=== PATIENT | female | born 1965 | race Caucasian/White ===

== ENCOUNTER 2020-04-16 09:25 | Outpatient (REF) | payer OTHER, SELFPAY ==
--- NOTE | 2020-04-16 09:32 | XR_ITS ---
EXAMINATION: XR FOOT, RIGHT XR CALCANEUS, RIGHT CLINICAL INFORMATION: Pain right foot and heel. COMPARISON: None TECHNIQUE: Right foot is imaged in 3 views. The right calcaneus is imaged in 2 views. There are total of 5 views. FINDINGS: There is no acute or healing fracture, dislocation, destructive process. Bony mineralization is normal. There is hallux valgus and first MTP of approximately 22 degrees along with bunion. There is some punctate benign periarticular soft tissue calcification adjacent to base fifth toe middle phalanx. The midfoot and forefoot shows no focal joint narrowing or erosive change. Some mild dorsal spurring is noted at the talonavicular region. The subtalar joint is normal. There are bulky plantar and posterior calcaneal spurs. The retrocalcaneal recess is preserved. XR/XR foot RT min 3V IMPRESSION: 1. Bulky plantar and posterior calcaneal spurs. 2. Spurring talonavicular region. 3. Hallux valgus first MTP with bunion.
--- NOTE | 2020-04-16 09:32 | XR_ITS ---
EXAMINATION: XR FOOT, RIGHT XR CALCANEUS, RIGHT CLINICAL INFORMATION: Pain right foot and heel. COMPARISON: None TECHNIQUE: Right foot is imaged in 3 views. The right calcaneus is imaged in 2 views. There are total of 5 views. FINDINGS: There is no acute or healing fracture, dislocation, destructive process. Bony mineralization is normal. There is hallux valgus and first MTP of approximately 22 degrees along with bunion. There is some punctate benign periarticular soft tissue calcification adjacent to base fifth toe middle phalanx. The midfoot and forefoot shows no focal joint narrowing or erosive change. Some mild dorsal spurring is noted at the talonavicular region. The subtalar joint is normal. There are bulky plantar and posterior calcaneal spurs. The retrocalcaneal recess is preserved. XR/XR calcaneus RT min 2V IMPRESSION: 1. Bulky plantar and posterior calcaneal spurs. 2. Spurring talonavicular region. 3. Hallux valgus first MTP with bunion.
== END 2020-04-16 09:26 | disposition home or self-care (01) ==
LOC: HO.HMGCX 09:25
PROVIDERS: PCP Nurse Practitioner Family; Visit Provider Nurse Practitioner Family
DX: M77.31 Calcaneal spur, right foot (principal); M77.32 Calcaneal spur, left foot; M79.671 Pain in right foot
CPT/HCPCS: 73630; 73650

== ENCOUNTER 2020-04-29 15:30 | Outpatient (REF) | payer OTHER, SELFPAY | END 2020-04-29 15:31 | disposition home or self-care (01) | LOC: HO.LNP 15:30 | PROVIDERS: Visit Provider Nurse Practitioner Family | DX: Z20.828 Contact with and (suspected) exposure to other viral communicable diseases (principal); R53.1 Weakness | CPT/HCPCS: U0003 ==

== ENCOUNTER 2020-06-09 12:22 | Outpatient (REF) | payer OTHER, SELFPAY | END 2020-06-09 12:23 | disposition home or self-care (01) | LOC: HO.LAB 12:22 | PROVIDERS: Visit Provider Internal Medicine | DX: Z20.828 Contact with and (suspected) exposure to other viral communicable diseases (principal) | CPT/HCPCS: C9803; U0003 ==

== ENCOUNTER 2021-03-31 13:08 | Outpatient (REF) | payer OTHER, SELFPAY ==
--- NOTE | ~2021-03-31 | MM_ITS ---
EXAMINATION: MM SCREENING DIGITAL BREAST TOMOSYNTHESIS, BILATERAL CLINICAL INFORMATION: Screening. Asymptomatic. The lifetime risk of breast cancer based on the Tyrer-Cuzick Model is 15%. COMPARISON: Mammography: 09/26/2018, 04/20/2017, 12/01/2014 TECHNIQUE: Digital breast tomosynthesis is performed in both the craniocaudal and mediolateral oblique views along with computer-aided detection (CAD). Synthesized 2D images are generated from the tomosynthesis. FINDINGS: There are scattered areas of fibroglandular density (ACR BI-RADS breast composition Category b). There are no significant masses, abnormal calcifications, or other abnormalities. Breast tissue composition is heterogeneously dense in the upper outer quadrant is Michelle prior exam. There is no developing density. Surgical clips are again noted upper outer quadrant left breast. No significant changes. MM/MM tomosynthesis screening BI IMPRESSION: No mammographic evidence of malignancy. ASSESSMENT: BI-RADS 1: Negative RECOMMENDATION: Routine annual mammography screening. This patient's information was entered into a reminder system with a target due date for their next mammogram.
== END 2021-03-31 13:09 | disposition home or self-care (01) ==
LOC: HO.MAMMO 13:08
PROVIDERS: Visit Provider Nurse Practitioner Family
DX: Z12.31 Encounter for screening mammogram for malignant neoplasm of breast (principal)
CPT/HCPCS: 77063; 77067

== ENCOUNTER 2021-07-03 08:58 | Outpatient (REF) | payer OTHER, SELFPAY ==
[2021-07-03 09:42] LABS: COVID-19 Test Negative (Negative)
== END 2021-07-03 08:59 | disposition home or self-care (01) ==
LOC: HO.LAB 08:58
PROVIDERS: PCP Nurse Practitioner Family; Visit Provider Internal Medicine
DX: Z20.822 Contact with and (suspected) exposure to COVID-19 (principal)
CPT/HCPCS: 87635

== ENCOUNTER 2021-09-10 08:33 | Outpatient (REF) | payer OTHER, SELFPAY ==
[2021-09-10 15:48] LABS: CT PCR NOT DETECTED (Not Detect.); NG PCR NOT DETECTED (Not Detect.)
[2021-09-11 11:10] LABS: BV Int Neg Control Negative (Negative); BV Int Pos Control Positive (Positive)
== END 2021-09-10 08:34 | disposition home or self-care (01) ==
LOC: HO.LAB 08:33
PROVIDERS: PCP Nurse Practitioner Family; Visit Provider Advanced Practice Midwife
DX: N89.8 Other specified noninflammatory disorders of vagina (principal); R10.2 Pelvic and perineal pain; Z20.2 Contact with and (suspected) exposure to infections with a predominantly sexual mode of transmission
CPT/HCPCS: 87480; 87491; 87510; 87591; 87660

== ENCOUNTER 2021-09-14 10:02 | Outpatient (REF) | payer OTHER, SELFPAY ==
[2021-09-18 02:22] LABS: HPV mRNA E6/E7 rflx Detected (Not Detected)
[2021-09-18 02:26] LABS: HPV 16 RNA NOT DETECTED (NOT DETECTED)
== END 2021-09-14 10:03 | disposition home or self-care (01) ==
LOC: HO.LAB 10:02
PROVIDERS: PCP Nurse Practitioner Family; Visit Provider Advanced Practice Midwife
DX: Z01.419 Encounter for gynecological examination (general) (routine) without abnormal findings (principal); N76.0 Acute vaginitis; B96.89 Other specified bacterial agents as the cause of diseases classified elsewhere; Z11.51 Encounter for screening for human papillomavirus (HPV); Z88.6 Allergy status to analgesic agent; Z88.4 Allergy status to anesthetic agent
CPT/HCPCS: 87624; 87625; 88142

== ENCOUNTER 2021-11-19 16:55 | Emergency (ER) | payer OTHER, SELFPAY ==
--- NOTE | 2021-11-19 | ECG_ITS ---
Test Reason : CHEST PRESSURE Blood Pressure : / mmHG Vent. Rate : 110 BPM Atrial Rate : 110 BPM P-R Int : 156 ms QRS Dur : 090 ms QT Int : 342 ms P-R-T Axes : 043 -04 034 degrees QTc Int : 462 ms Sinus tachycardia RSR' or QR pattern in V1 suggests right ventricular conduction delay Inferior infarct , age undetermined Anterior infarct , age undetermined Abnormal ECG When compared with ECG of 12-AUG-2019 09:48, Anterior infarct is now Present Inferior infarct is now Present Referred By: Generic ED Physician Electronically Signed By:BALA SILVA MD
--- NOTE | ~2021-11-19 | XR_ITS ---
EXAMINATION: PORTABLE CHEST 1 VIEW CLINICAL INFORMATION: cough . COMPARISON: No recent pertinent prior studies are available for comparison. TECHNIQUE: Portable frontal view of the chest was obtained. FINDINGS: The lungs are well expanded. No focal infiltrate, effusion, edema, or pneumothorax. Cardiac and mediastinal silhouettes are within normal limits for technique. No acute bony abnormality seen with degenerative changes in the spine and shoulders.. XR/XR chest 1V IMPRESSION: No evidence of acute disease.
[2021-11-19 17:01] VITALS: BP 148/110; PULSE 120; RESP 18; TEMP 36.3; O2SAT 97; BMI 26.5
[2021-11-19 17:10] LABS: MANUAL DIFF FLAG NO
[2021-11-19 17:14] LABS: Basophils Percent Auto 0.2 % (0-2); Eosinophils Absolute Auto 0.1 X10*3/uL (0.0-0.4); Hematocrit 39.4 % (37.0-47.0); Hemoglobin 13.7 g/dl (12.0-16.0); Imm Gran Abs Auto 0.01 X10*3/uL (0.00-0.03); Imm Gran Pct Auto 0.2 % (0.0-0.4); Lymphocytes Absolute Auto 1.7 X10*3/uL (1.2-4.9); Lymphocytes Percent Auto 27.3 % (20-40); Mean Corpuscular HGB Conc 34.8 g/dl (31.0-35.0); Mean Corpuscular Hemoglobin 32.5 pg (27.0-33.0); Mean Corpuscular Volume 93.4 fL (80.0-98.0); Mean Platelet Volume 9.3 fL (9.4-12.3); Monocytes Absolute Auto 0.5 X10*3/uL (0.1-1.2); Monocytes Percent Auto 8.8 % (2-11); Neutrophils Absolute Auto 3.8 x10*3/uL (2.0-8.3); Neutrophils Percent Auto 61.5 % (45-73); Platelet Count 232 X10*3/uL (160-400); Red Blood Count 4.22 X10*6/uL (4.20-5.50); Red Cell Distribution Width 12.5 % (11.0-16.0); White Blood Count 6.2 X10*3/uL (4.8-10.8)
[2021-11-19 17:28] LABS: Alanine Aminotransferase 23 U/L (0-31); Albumin Level 4.5 g/dL (3.5-5.0); Alkaline Phosphatase 66 U/L (39-117); Anion Gap 13 (12-20); Aspartate Amino Transferase 24 U/L (5-31); Bilirubin Total 0.3 mg/dL (0.0-1.0); Blood Urea Nitrogen 15 mg/dL (9-16); Calcium 9.9 mg/dL (8.4-10.2); Carbon Dioxide 26 mmol/L (22-29); Chloride 104 mmol/L (96-108); Creatinine Clr Calc Pharmacy 68.9; Estimated Glomerular Filt Rate > 60; Glucose Random 104 mg/dL (60-115); Potassium 3.7 mmol/L (3.3-5.1); Sodium 139 mmol/L (135-145); Total Protein 7.4 g/dL (6.5-8.0)
--- NOTE | 2021-11-19 17:30 | ED.CHESTPAIN ---
HPI - Chest Pain General Chief Complaint: Chest Pain Stated Complaint: High pulse/Chest pressure Time Seen by Provider: 11/19/21 17:09 Source: patient Mode of arrival: ambulatory Limitations: no limitations History of Present Illness HPI narrative: Patient no significant past medical history been coughing for last 1 week mostly dry patient referred phlegm low-grade fever and chills with elevated heart rate in 130 range associated with right-sided chest pain when coughing. Also patient feels short of breath when coughing patient is not vaccinated against COVID-19 had COVID in 07/10 been testing at home negative for COVID also was tested at work connection last week 11/10 and was negative Related Data Home Medications Medication Instructions Recorded Confirmed fluticasone propionate 50 2 spray INTRANASAL DAILY PRN 04/16/20 12/25/20 mcg/actuation nasal spray,suspension omeprazole 20 mg tablet,delayed 20 mg PO DAILY 04/16/20 12/25/20 release Previous Rx's Medication Instructions Recorded tretinoin 0.01 % topical gel 1 applic TOPICAL BEDTIME 30 Days 04/16/20 #45 g metronidazole 500 mg tablet 500 mg PO Q12H 7 Days #14 tab 09/14/21 metronidazole 0.75 % vaginal gel 1 appful VAGINAL BEDTIME 5 Days 10/08/21 #70 g codeine 10 mg-guaifenesin 100 mg/5 10 ml PO Q6H PRN #237 ml 11/19/21 mL oral liquid Allergies Allergy/AdvReac Type Severity Reaction Status Date / Time lidocaine [LIDOCAINE] Allergy Unknown UNKNOWN Verified 09/14/21 10:17 oxycodone [From PERCOCET] Allergy Unknown VOMITING Verified 09/14/21 10:17 Review of Systems Review of Systems: Yes all other systems are reviewed and are negative [facility] Past Medical History Medical History Anxiety Family hx-breast malignancy High calcium levels History of abnormal cervical Pap smear Pain of right heel Psoriasis Surgical History H/O LEEP History of hemorrhoidectomy History of tubal ligation Hx of cholecystectomy Hx of colonoscopy Status post breast reduction Family History Family History Father No problems noted. 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 Oriented X3. ENT: Pharynx normal. Oral Mucosa moist Neck: Normal inspection. Neck supple. CVS: Normal heart rate and rhythm. Pulses normal. Respiratory: No respiratory distress. Equal air entry bilateral, no wheezing/rales/rhonchi prolonged expiration Abdomen: Soft and nontender. Bowel sounds are present, no mass palpable, no CVA tenderness Skin: Skin warm and dry. Normal skin color. Normal skin turgor. Extremities: No lower extremity edema. No calf tenderness Neuro: Oriented X 3. No motor deficit. MDM - Chest Pain MDM Narrative Medical decision making narrative: Patient with COVID positive likely the cause for cough fever and body symptoms will discharge patient home advised for supportive treatment Lab Data Attestation: I reviewed the patient's lab results. Result diagrams: 11/19/21 17:07 11/19/21 17:07 Labs: Lab Results 11/19/21 11/19/21 11/19/21 Range/Units 17:07 17:07 17:07 WBC 6.2 (4.8-10.8) X10*3/uL RBC 4.22 (4.20-5.50) X10*6/uL Hgb 13.7 (12.0-16.0) g/dl Hct 39.4 (37.0-47.0) % MCV 93.4 (80.0-98.0) fL MCH 32.5 (27.0-33.0) pg MCHC 34.8 (31.0-35.0) g/dl RDW 12.5 (11.0-16.0) % Plt Count 232 (160-400) X10*3/uL MPV 9.3 L (9.4-12.3) fL Immature Gran % (Auto) 0.2 (0.0-0.4) % Neut % (Auto) 61.5 (45-73) % Lymph % (Auto) 27.3 (20-40) % Wilkin % (Auto) 8.8 (2-11) % Eos % (Auto) 2.0 (0-4) % Baso % (Auto) 0.2 (0-2) % Lymph # (Auto) 1.7 (1.2-4.9) X10*3/uL Wilkin # (Auto) 0.5 (0.1-1.2) X10*3/uL Eos # (Auto) 0.1 (0.0-0.4) X10*3/uL Baso # (Auto) 0.0 (0.0-0.2) X10*3/uL Abs Immat Gran (auto) 0.01 (0.00-0.03) X10*3/uL Absolute Neuts (auto) 3.8 (2.0-8.3) x10*3/uL Absolute Nucleated RBC 0.000 (0.0-0.012) X10*3/uL Nucleated RBC % (auto) 0.0 (0.0-0.2) /100WBC Sodium 139 (135-145) mmol/L Potassium 3.7 (3.3-5.1) mmol/L Chloride 104 (96-108) mmol/L Carbon Dioxide 26 (22-29) mmol/L Anion Gap 13 (12-20) BUN 15 (9-16) mg/dL Creatinine 0.81 (0.5-1.4) mg/dL Estim Creat Clear Calc 68.9 Estimated GFR > 60 Random Glucose 104 (60-115) mg/dL Calcium 9.9 (8.4-10.2) mg/dL Total Bilirubin 0.3 (0.0-1.0) mg/dL AST 24 (5-31) U/L ALT 23 (0-31) U/L Alkaline Phosphatase 66 (39-117) U/L Troponin I High Sens < 3.5 (<3.5-17.0) ng/L Total Protein 7.4 (6.5-8.0) g/dL Albumin 4.5 (3.5-5.0) g/dL COVID-19 (SANDRA) (Negative) COVID-19 Clin Com Influenza Type A (NICOLASA) (Negative) Influenza Type B (NICOLASA) (Negative) Influenza A & B Note 11/19/21 11/19/21 Range/Units 17:37 17:37 WBC (4.8-10.8) X10*3/uL RBC (4.20-5.50) X10*6/uL Hgb (12.0-16.0) g/dl Hct (37.0-47.0) % MCV (80.0-98.0) fL MCH (27.0-33.0) pg MCHC (31.0-35.0) g/dl RDW (11.0-16.0) % Plt Count (160-400) X10*3/uL MPV (9.4-12.3) fL Immature Gran % (Auto) (0.0-0.4) % Neut % (Auto) (45-73) % Lymph % (Auto) (20-40) % Wilkin % (Auto) (2-11) % Eos % (Auto) (0-4) % Baso % (Auto) (0-2) % Lymph # (Auto) (1.2-4.9) X10*3/uL Wilkin # (Auto) (0.1-1.2) X10*3/uL Eos # (Auto) (0.0-0.4) X10*3/uL Baso # (Auto) (0.0-0.2) X10*3/uL Abs Immat Gran (auto) (0.00-0.03) X10*3/uL Absolute Neuts (auto) (2.0-8.3) x10*3/uL Absolute Nucleated RBC (0.0-0.012) X10*3/uL Nucleated RBC % (auto) (0.0-0.2) /100WBC Sodium (135-145) mmol/L Potassium (3.3-5.1) mmol/L Chloride (96-108) mmol/L Carbon Dioxide (22-29) mmol/L Anion Gap (12-20) BUN (9-16) mg/dL Creatinine (0.5-1.4) mg/dL Estim Creat Clear Calc Estimated GFR Random Glucose (60-115) mg/dL Calcium (8.4-10.2) mg/dL Total Bilirubin (0.0-1.0) mg/dL AST (5-31) U/L ALT (0-31) U/L Alkaline Phosphatase (39-117) U/L Troponin I High Sens (<3.5-17.0) ng/L Total Protein (6.5-8.0) g/dL Albumin (3.5-5.0) g/dL COVID-19 (SANDRA) Positive A (Negative) COVID-19 Clin Com See Note Influenza Type A (NICOLASA) Negative (Negative) Influenza Type B (NICOLASA) Negative (Negative) Influenza A & B Note See Note Discharge Plan Discharge Clinical Impression: COVID-19 Patient Disposition: Home, Self-Care Instructions: COVID-19 (Coronavirus Disease 2019) (ED) Additional Instructions: Drink plenty of fluids Social distancing as advised till symptomatic or negative test Cough syrup as prescribed Albuterol inhaler as needed for increased cough or shortness of breath Prescriptions: New codeine-guaifenesin 10-100 mg/5 mL liquid 10 ml PO Q6H PRN (Reason: cough) Qty: 237 0RF No Action metronidazole 0.75 % gel 1 appful vaginal BEDTIME 5 Days Qty: 70 0RF fluticasone propionate 50 mcg/actuation spray,suspension 2 spray intranasal DAILY PRN0RF omeprazole 20 mg tablet,delayed release (DR/EC) 20 mg PO DAILY 0RF tretinoin 0.01 % gel 1 applic topical BEDTIME 30 Days Qty: 45 1RF metronidazole 500 mg tablet 500 mg PO Q12H 7 Days Qty: 14 0RF Interventions: ED Discharge Assessment Last Done: 11/19/21 19:17 Discharge Date/Time: 11/19/21 19:18
[2021-11-19 17:48] LABS: Troponin-I High Sensitivity < 3.5 ng/L (<3.5-17.0)
[2021-11-19 17:49] VITALS: BP 128/78; PULSE 100; RESP 13; TEMP 37.4; O2SAT 98
[2021-11-19 17:58] LABS: Influenza A Negative (Negative); Influenza B2 Negative (Negative)
[2021-11-19 18:03] LABS: COVID-19 Test Positive (Negative); IDNOW Serial# 16C4AD1C
[2021-11-19] MEDS: guaiFEN/Codeine SF 200/20/10ML 10 ML LIQUID PO (18:31)
[2021-11-19] MEDS: Albuterol Sulfate 90 MCG 8 GM INHALER 4 PUFF INHALE (18:34)
[2021-11-19 18:36] VITALS: PULSE 84; RESP 15; O2SAT 98
[2021-11-19] MEDS: dexAMETHasone 6 MG TABLET PO (18:39)
[2021-11-19] MEDS: Acetaminophen 325 MG TABLET 650 MG PO (18:39)
== END 2021-11-19 19:18 | disposition home or self-care (01) ==
PROVIDERS: Emergency Provider Internal Medicine; PCP Nurse Practitioner Family
DX: U07.1 COVID-19 (principal)
CPT/HCPCS: 36415; 71045; 80053; 84484; 85025; 87502; 87635; 93005; 94640; 99284; J8540

== ENCOUNTER 2021-12-16 10:11 | Outpatient (REF) | payer OTHER, SELFPAY | END 2021-12-16 10:12 | disposition home or self-care (01) | LOC: HO.LAB 10:11 | PROVIDERS: PCP Nurse Practitioner Family; Visit Provider Obstetrics & Gynecology | DX: R87.810 Cervical high risk human papillomavirus (HPV) DNA test positive (principal) | CPT/HCPCS: 57454; 88305 ==

== ENCOUNTER → 2022-03-21 10:04 | Outpatient (BNVA) | payer OTHER, SELFPAY | PROVIDERS: PCP Nurse Practitioner Family; Visit Provider Internal Medicine | DX: Z13.89 Encounter for screening for other disorder (principal) | CPT/HCPCS: 70160; 70200; 99204 ==

== ENCOUNTER → 2022-03-25 08:04 | Outpatient (BNVA) | payer OTHER, SELFPAY | PROVIDERS: PCP Nurse Practitioner Family; Visit Provider Internal Medicine | DX: Z13.89 Encounter for screening for other disorder (principal) | CPT/HCPCS: 99213 ==

== ENCOUNTER 2023-07-24 15:17 | Outpatient (AMB) | payer OTHER, SELFPAY ==
--- NOTE | 2023-07-24 15:16 | AM.OFFWIN_ITS ---
Intake Vital Signs 07/24/23 15:18 Weight 64.864 kg BP 150/90 H Blood Pressure Location Lt brachial Position Sitting Pulse 73 Pulse Source Pulse Oximeter Temp 97.5 F Temp Source Temporal Artery Scan Pulse Oximetry (%) 96 Oxygen Delivery Method Room Air Intake Visit Reasons: EP pain lft shoulder radiates down arm Intake Note: pt is here today for pain lft shoulder radiates down arm started 6 months Patient Tobacco Use Status: Former Tobacco user Allergies lidocaine [LIDOCAINE] Allergy (Unknown, Verified 07/24/23 15:17) UNKNOWN oxycodone [From PERCOCET] Allergy (Unknown, Verified 07/24/23 15:17) VOMITING Do you need a note to return to daycare/school/sports/work: Yes HPI HPI Comments History of Present Illness Details 58-year-old female presenting to the [facility] for evaluation of left- sided upper back pain with radiation intermittently into left upper extremity. Patient reports this has been going on for the past 6 months and it comes and goes in severity. 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 She thinks this is making it much worse. Patient also states that she would like a refill on her betamethasone. And also requesting something for anxiety. No SI or HI reported. Denies blunt trauma. Denies urinary/bowel incontinence/retention, saddle paresthesias, weakness. Patient ambulatory upon arrival On exam there is left-sided lower cervical paraspinous muscle tenderness. 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 No midline tenderness to the spine. Normal sensation distally. Full range of motion to bilateral upper extremities. No wrist drop. 2+ radial pulses. History and physical exam concerning for possible cervical radiculopathy. No signs of cervical myelopathy, cord compression, meningitis encephalitis. Unlikely atypical presentation of ACS Plan muscle relaxers will refill betamethasone will give Lidoderm patches. Educated on ibuprofen and Tylenol. Educated patient on diagnosis and treatment plan, answered all question, patient verbalizes understanding. At this time patient will be discharged home, advised to return with new or worsening symptoms. Educated on worrisome signs and symptoms and when to return. At this time I feel comfortable discharge home. [facility] Medical History Anxiety Family hx-breast malignancy High calcium levels History of abnormal cervical Pap smear Pain of right heel Psoriasis Surgical History H/O LEEP History of hemorrhoidectomy History of tubal ligation Hx of cholecystectomy Hx of colonoscopy Status post breast reduction Family History Father No problems noted. 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 Oriented X3.? No acute distress.? Head: Normocephalic, atraumatic, no step-offs or deformities Eyes: Pupils equal, round and reactive to light.? CVS: Normal heart rate and rhythm.? Pulses normal.? Respiratory: No respiratory distress.? Breath sounds normal.? Abdomen: Soft and nontender.? Skin: Skin warm and dry.? Normal skin color.? Normal skin turgor.? Extremities: No lower extremity edema.? No calf ttp. 5/5 strength to bilateral upper and lower extremities Back: No midline tenderness, no C-spine tenderness, full range of motion, no CVA tenderness bilaterally left-sided lower cervical paraspinous muscle tenderness. 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 No midline tenderness to the spine. Normal sensation distally. Full range of motion to bilateral upper extremities. No wrist drop. 2+ radial pulses. Neuro: Oriented X 3.? No motor deficit.? No sensory deficit. CN 2-12 intact Assessment & Plan Assessment & Plan (1) Cervical radiculopathy: Code(s): M54.12 - Radiculopathy, cervical region Plan Take your medications as prescribed. If you were prescribed antibiotics today, it is important that you take your medication to their entirety, do not skip any doses, do not finish them early. Follow-up with your primary care provider this week. Return to the emergency department with new or worsening symptoms. Such as fevers, chills, chest pain, shortness of breath, nausea, vomiting, dizziness, headache, vision changes, lethargy In case of emergency call 911 Orders: Orders AMB EKG-In Office Today M25.519 - Pain in unspecified shoulder Medications: New cyclobenzaprine 10 mg PO BEDTIME PRN 14 tabs 0RF muscle spasm betamethasone valerate 0.1% 1 appl topical DAILY PRN 45 grams 0RF skin irritation hydroxyzine HCl 25 mg PO BID PRN 14 tabs 0RF itching Coding Level of Care Code Est Pt Level 3 (31760) Diagnoses Cervical radiculopathy M54.12
[2023-07-24 15:18] VITALS: BP 150/90; PULSE 73; TEMP 36.4; O2SAT 96
== END 2023-07-24 16:01 | disposition home or self-care (01) ==
PROVIDERS: PCP Nurse Practitioner Family; Visit Provider Physician Assistant
DX: M54.12 Radiculopathy, cervical region (principal)
CPT/HCPCS: 99213

== ENCOUNTER 2023-09-05 08:26 | Outpatient (REF) | payer OTHER, SELFPAY ==
--- NOTE | ~2023-09-05 | MM_ITS ---
EXAMINATION: MM SCREENING DIGITAL BREAST TOMOSYNTHESIS, BILATERAL CLINICAL INFORMATION: Screening. Asymptomatic. History of breast reduction surgery. COMPARISON: Mammography: 03/31/2021, 09/26/2018, 04/20/2017, 12/01/2014 TECHNIQUE: Digital breast tomosynthesis is performed in both the craniocaudal and mediolateral oblique views along with computer-aided detection (CAD). Synthesized 2D images are generated from the tomosynthesis. FINDINGS: The breasts are heterogeneously dense, which may obscure small masses (ACR BI-RADS breast composition Category c). Redemonstration of surgical clips identified in the upper far outer left breast posterior one third. There are bilateral mild architectural changes left greater than right, consistent with changes of reduction mammoplasty. There are no suspicious grouped pleomorphic calcifications. There are no suspicious masses. There are no developing regions of architectural distortion in either breast. The parenchymal pattern of both breasts has remained stable over many years. There are no skin or axillary findings. MM/MM tomosynthesis screening BI IMPRESSION: No mammographic evidence of malignancy. Stable benign findings both breasts. ASSESSMENT: BI-RADS BI-RADS 2 - Benign Findings RECOMMENDATION: Routine annual mammography screening. 1 year F/U This examination should not preclude the clinical evaluation of a suspicious palpable abnormality. This patient's information was entered into a reminder system with a target due date for their next mammogram.
== END 2023-09-05 08:27 | disposition home or self-care (01) ==
LOC: HO.MAMMO 08:26
PROVIDERS: PCP Nurse Practitioner Family; Visit Provider Nurse Practitioner Family
DX: Z12.31 Encounter for screening mammogram for malignant neoplasm of breast (principal)
CPT/HCPCS: 77063; 77067

== ENCOUNTER → 2023-09-05 08:30 | Outpatient (BNV) | payer OTHER, SELFPAY | PROVIDERS: PCP Nurse Practitioner Family; Visit Provider Radiology Diagnostic Radiology | DX: Z12.31 Encounter for screening mammogram for malignant neoplasm of breast (principal) | CPT/HCPCS: 77063; 77067 ==

== ENCOUNTER 2023-10-19 09:10 | Outpatient (REF) | payer OTHER, SELFPAY ==
[2023-10-26 03:37] LABS: HPV mRNA E6/E7 rflx Not Detected (Not Detected)
== END 2023-10-19 09:11 | disposition home or self-care (01) ==
LOC: HO.LNP 09:10
PROVIDERS: PCP Nurse Practitioner Family; Visit Provider Obstetrics & Gynecology
DX: Z01.419 Encounter for gynecological examination (general) (routine) without abnormal findings (principal); Z11.51 Encounter for screening for human papillomavirus (HPV)
CPT/HCPCS: 87624; 88142

== ENCOUNTER 2023-10-19 09:10 | Outpatient (AMB) | payer OTHER, SELFPAY ==
--- NOTE | 2023-10-19 09:28 | MHC.OFFVIS ---
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 No complaints. Last Pap/HPV was negative/HPV E6/E7 positive, HPV 16/18/45 negative, followed by colpo/biopsy/ECC which was negative Last Mammogram was BI-RADS 2 in 09/09 Last Colonoscopy was done at [facility] in 10/04, the recommendation was to repeat in 10 years [facility] Medical History (Updated 10/19/23 @ 09:39 by Morales Santos MD) History of abnormal cervical Pap smear High calcium levels Anxiety Psoriasis Family hx-breast malignancy Pain of right heel Surgical History (Updated 10/19/23 @ 09:34 by Morales Santos MD) Hx of shoulder surgery Hx of colonoscopy H/O LEEP Hx of cholecystectomy Status post breast reduction History of hemorrhoidectomy History of tubal ligation Family History Father No problems noted. Mother HTN (hypertension) Breast cancer, Onset Age: 78 Social History Housing: House Alcohol intake: current Alcohol intake frequency: a few times a week Alcohol type: wine Patient Tobacco Use Status: Former Tobacco user e-Cigarette/Vaping Use: Never Used Second Hand Smoke Exposure: No Current occupational status: employed Current occupation: [employer] [place] [employer] Current occupational exposures/hazards: Yes Cognitive needs: No Hearing needs: No Vision needs: No Female Reproductive History Menstrual Age of Menarche: 14 control method: permanent sterilization Total pregnancies: 6 Full term: 6 Number of Living Children: 6 Date of last pap smear: 09/15/21 (+HPV) History of abnormal pap smear: Yes Date of Mammogram: 09/05/23 Review of Systems Const All systems reviewed & are unremarkable except as noted in HPI and below Card Reports as per HPI Resp Reports as per HPI GI Reports as per HPI and Reports no additional complaints Reports as per HPI Physical Exam Vital Signs: Last Vital Signs BP 122/84 10/19/23 09:30 BMI result Body Mass Index 26.3 Const General: cooperative, healthy appearing and comfortable Chest Chest palpation & inspection: normal inspection of the chest and normal palpation of entire chest wall Breast/axilla inspection: normal inspection of the breasts and normal inspection of the axillae Breast/axilla palpation: normal palpation of the breasts, normal palpation of the axillae and no axillary lymphadenopathy Resp Effort & Inspection: normal respiratory effort Auscultation: clear to auscultation bilaterally Percussion: percussion normal Cardio Palpation: normal PMI Rate: regular rate Rhythm: regular rhythm Heart sounds: no murmurs and no rubs Peripheral pulses: Peripheral pulses 2+ throughout GI Inspection: Yes normal to inspection Palpation (GI): Soft to palpation, nontender, no guarding, not rigid and No hepatosplenomegaly present Percussion: Yes normal to percussion Auscultation: normal bowel sounds Rectal Exam - Female: deferred General: Yes bladder normal to palpation External Female Exam: No lesion Speculum Exam - Vagina: normal appearance of the vagina, normal palpation, normal vaginal discharge and not erythematous Speculum Exam - Cervix: normal appearance of the cervix and normal palpation Bimanual exam- vagina & uterus: normal bimanual exam, normal palpation, uterine size normal, bladder normal to palpation, consistency normal and normal palpation Bimanual Exam- Adnexa, other: normal adnexae, no masses and no tenderness Assessment & Plan Assessment & Plan (1) Well woman exam: Comment: Negative Pap/HPV E6 E7 positive in 2021 ZEV 3 status post LEEP cone with positive margins 2017 Code(s): Z01.419 - Encounter for gynecological examination (general) (routine) without abnormal findings Category: Medical Plan: Co testing done. Counseled the patient about the recommended dietary allowance of 1200 mg of Calcium & 600 IU of vitamin D. Instructions given to patient to schedule next screening Mammogram in 09/10. The patient was instructed to perform monthly self-breast exams and schedule annual exam in a year. All questions answered and the patient verbalized understanding. Coding Level of Care Code Est Pt Prev Care 40-64y(12052) Diagnoses Well woman exam Z01.419
[2023-10-19 09:30] VITALS: BP 122/84; BMI 26.3
== END 2023-10-19 10:15 | disposition home or self-care (01) ==
PROVIDERS: PCP Nurse Practitioner Family; Visit Provider Obstetrics & Gynecology
DX: Z01.419 Encounter for gynecological examination (general) (routine) without abnormal findings (principal)
CPT/HCPCS: 99396

== ENCOUNTER 2023-11-28 15:46 | Outpatient (AMB) | payer OTHER, SELFPAY ==
--- NOTE | 2023-11-28 15:49 | MHC.OFFVIS ---
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 Information Interpreted: non-clinical & clinical Neighborhood Coordinator: Neighborhood Coordinator Present (Kyra Porter WINIFRED) Accompanied by: Self / Same As Patient Allergies lidocaine [LIDOCAINE] Allergy (Unknown, Verified 11/28/23 15:58) UNKNOWN oxycodone [From PERCOCET] Allergy (Unknown, Verified 11/28/23 15:58) VOMITING Post menopausal: Yes HPI Comments Details: Presenting for abnormal Pap smear showing low-grade LINDA, HPV negative PFSH Medical History History of abnormal cervical Pap smear High calcium levels Anxiety Psoriasis Family hx-breast malignancy Pain of right heel Surgical History Hx of shoulder surgery Hx of colonoscopy H/O LEEP Hx of cholecystectomy Status post breast reduction History of hemorrhoidectomy History of tubal ligation Family History Father No problems noted. Mother HTN (hypertension) Breast cancer, Onset Age: 78 Social History Housing: House Alcohol intake: current Alcohol intake frequency: a few times a week Alcohol type: wine Patient Tobacco Use Status: Former Tobacco user e-Cigarette/Vaping Use: Never Used Second Hand Smoke Exposure: No Current occupational status: employed Current occupation: [employer] Current occupational exposures/hazards: Yes Cognitive needs: No Hearing needs: No Vision needs: No Female Reproductive History Menstrual Age of Menarche: 14 Review of Systems Const All systems reviewed & are unremarkable except as noted in HPI and below Reports as per HPI and Reports no additional complaints GI Reports no additional complaints Reports no additional complaints Physical Exam Vital Signs: Last Vital Signs BP 102/64 11/28/23 15:51 BMI result Body Mass Index 26.2 Office Procedures Colposcopy Colposcopy: Pre-Procedure Counseling: Before beginning the procedure, I conducted comprehensive counseling with the patient. We thoroughly discussed the procedure itself, including its details, alternatives, and all associated risks. This included but not limited to the following complications such as bleeding, infection, and injury to the vagina, bladder, and vessels, as well as the potential need for transfusion with all its associated risks. Subsequently, the patient sign the consent. Pap smear result: LSIL. Procedure: During the procedure, the following steps were performed: A speculum was inserted, and acetic acid was applied. Colposcopy was conducted, allowing visualization of the transformation zone. Acetowhite lesions were identified at the 5+12 o'clock position. Cervical biopsies were obtained from the 5+12 o'clock position, followed by an endocervical curettage (ECC). Vaginoscopy of the upper vagina revealed no evidence of aceto-white lesions. Hemostasis was achieved using Monsel solution, and the patient tolerated the procedure well. Post-Procedure Instructions: The patient was advised to promptly contact the office or the after hours answering service or go to the emergency room if experiencing a temperature exceeding 100.4?F, abdominal pain, nausea/vomiting, or bleeding. Additionally, the patient was instructed to abstain from vaginal intercourse and bathtub use. The patient confirmed understanding of these instructions. Discharge Instructions: The patient was instructed to schedule a follow-up appointment in 2 weeks for further evaluation and management. Please note that this note was generated using a voice recognition program, and errors may have occurred during community development aide. 35401-Ctozathyw of cervix including upper vagina with biopsy and ECC Procedure code (CPT) selection complete Assessment & Plan Assessment & Plan (1) LGSIL on Pap smear of cervix: Code(s): R87.612 - Low grade squamous intraepithelial lesion on cytologic smear of cervix (LGSIL) Category: Medical Plan: Discussed with the patient the result of her abnormal pap, its significance, risk of progression, persistence, and regression. the false positive/negative rate of a Pap smear as a screening test in detecting cervical cancer and the indication for a diagnostic test -colposcopy, biopsy, endocervical curettage. The patient verbalized understanding and agreed with the plan, all questions answered. Colposcopy done, see procedure Orders: Orders AMB Colposcopy Today R87.612 - Low grade squamous intraepithelial lesion on cytologic smear of cervix (LGSIL) Coding Level of Care Code Procedure Only Diagnoses LGSIL on Pap smear of cervix R87.612 CPT Codes Colposcopy - CPT: 57258-Vvqetxjff of cervix including upper vagina with biopsy and ECC ([id number])
[2023-11-28 15:51] VITALS: BP 102/64; BMI 26.2
== END 2023-11-28 16:23 | disposition home or self-care (01) ==
PROVIDERS: PCP Nurse Practitioner Family; Visit Provider Obstetrics & Gynecology
DX: R87.612 Low grade squamous intraepithelial lesion on cytologic smear of cervix (LGSIL) (principal)
CPT/HCPCS: 57454

== ENCOUNTER 2023-11-28 15:46 | Outpatient (REF) | payer OTHER, SELFPAY | END 2023-11-28 15:47 | disposition home or self-care (01) | LOC: HO.LNP 15:46 | PROVIDERS: PCP Nurse Practitioner Family; Visit Provider Obstetrics & Gynecology | DX: R87.612 Low grade squamous intraepithelial lesion on cytologic smear of cervix (LGSIL) (principal) | CPT/HCPCS: 57454; 88305 ==

== ENCOUNTER 2023-12-28 15:23 | Outpatient (AMB) | payer OTHER, SELFPAY ==
--- NOTE | 2023-12-28 15:31 | MHC.OFFVIS ---
Vital Signs 12/28/23 15:32 Height 5 ft 2 in Weight 143 lb 4.807 oz BMI 26.2 Intake Visit Reasons: Colpo Results Systematic Theology Professor Required: No Information Interpreted: non-clinical & clinical Accompanied by: Self / Same As Patient Allergies lidocaine [LIDOCAINE] Allergy (Unknown, Verified 12/28/23 15:32) UNKNOWN oxycodone [From PERCOCET] Allergy (Unknown, Verified 12/28/23 15:32) VOMITING Post menopausal: Yes HPI Comments Details: Presenting post colpo for follow-up. The patient is doing well with no complaints. The pathology showed the following: A. Endocervix, curettage: Squamous epithelium with inflammation, reactive changes and mild squamous atypia and scant benign endocervical glandular epithelium (see comment). B. Cervix, 5:00, biopsy: Squamous mucosa with reactive changes and focal mild squamous atypia, and rare benign detached endocervical glandular epithelial cells (see comment). C. Cervix, 12:00, biopsy: Squamous mucosa, negative for dysplasia; no endocervical glandular component present. Comment: The focal mild atypia is insufficient for an unequivocal diagnosis of low-grade dysplasia, and may represent a resolving process. The patient's low grade dysplasia in the previous Pap test ([id number]) has some similarities to the atypia in the current biopsies [facility] Medical History History of abnormal cervical Pap smear High calcium levels Anxiety Psoriasis Family hx-breast malignancy Pain of right heel Surgical History Hx of shoulder surgery Hx of colonoscopy H/O LEEP Hx of cholecystectomy Status post breast reduction History of hemorrhoidectomy History of tubal ligation Family History Father No problems noted. Mother HTN (hypertension) Breast cancer, Onset Age: 78 Social History Housing: House Alcohol intake: current Alcohol intake frequency: a few times a week Alcohol type: wine Patient Tobacco Use Status: Former Tobacco user e-Cigarette/Vaping Use: Never Used Second Hand Smoke Exposure: No Current occupational status: employed Current occupation: [employer] [place] [employer] Current occupational exposures/hazards: Yes Cognitive needs: No Hearing needs: No Vision needs: No Female Reproductive History Menstrual Age of Menarche: 14 Review of Systems Const All systems reviewed & are unremarkable except as noted in HPI and below Reports as per HPI and Reports no additional complaints GI Reports no additional complaints Reports no additional complaints Physical Exam Vital Signs: BMI result Body Mass Index 26.2 Assessment & Plan Assessment & Plan (1) LGSIL on Pap smear of cervix: Code(s): R87.612 - Low grade squamous intraepithelial lesion on cytologic smear of cervix (LGSIL) Category: Medical Plan: Discussed with the patient the pathology results of the colposcopy biopsies & endocervical curettage . Discussed with the patient the sensitivity specificity, positive and negative predictive value in detecting cervical cancer in addition discussed the regression, persistence and progression rates. Recommended co-testing in 12 months, if cytology and or HPV are abnormal will proceed was colposcopy biopsy and endocervical curettage, if lesions gets worse or stays persistent for 2 years will proceed with loop electric excision procedure. Instructions given to the patient to schedule a co test appointment in 1 year. All questions answered the patient verbalized understanding. Coding Level of Care Code Est Pt Level 3 (11752) Diagnoses LGSIL on Pap smear of cervix R87.612
[2023-12-28 15:32] VITALS: BMI 26.2
== END 2023-12-28 15:40 | disposition home or self-care (01) ==
PROVIDERS: PCP Nurse Practitioner Family; Visit Provider Obstetrics & Gynecology
DX: R87.612 Low grade squamous intraepithelial lesion on cytologic smear of cervix (LGSIL) (principal)
CPT/HCPCS: 99213

== ENCOUNTER → 2023-12-28 15:23 | Outpatient (BNVA) | payer OTHER, SELFPAY | PROVIDERS: PCP Nurse Practitioner Family; Visit Provider Obstetrics & Gynecology ==

== ENCOUNTER → 2024-01-29 09:52 | Outpatient (BNVA) | payer OTHER, SELFPAY | PROVIDERS: PCP Nurse Practitioner Family; Visit Provider Physician Assistant Medical | DX: Z13.89 Encounter for screening for other disorder (principal) | CPT/HCPCS: 99202 ==

== ENCOUNTER 2024-04-10 12:59 | Outpatient (AMB) | payer OTHER, SELFPAY ==
[2024-04-10 13:07] VITALS: BP 130/90; PULSE 74; O2SAT 98; BMI 26.5
--- NOTE | 2024-04-10 13:07 | MHC.OFFWIV ---
Intake Vital Signs 04/10/24 13:07 Height 5 ft 2 in Weight 145 lb BMI 26.5 BP 130/90 H Blood Pressure Location Rt brachial Position Sitting Pulse 74 Pulse Source Pulse Oximeter Pulse Oximetry (%) 98 Oxygen Delivery Method Room Air Intake Visit Reasons: EP Fell, injured rt arm Intake Note: Patient here for right arm pain, she states she did a summer salt down her stairs and has small laceration to right side of her forehead. Patient Tobacco Use Status: Former Tobacco user Allergies lidocaine [LIDOCAINE] Allergy (Unknown, Verified 04/10/24 13:08) UNKNOWN oxycodone [From PERCOCET] Allergy (Unknown, Verified 04/10/24 13:08) VOMITING Do you need a note to return to daycare/school/sports/work: Yes HPI HPI Comments History of Present Illness Details Patient is a 58-year-old female complaining of right forearm pain after sustaining a fall down her stairs inside of her house just prior to arrival. She tells me that she was carrying a printer down the stairs and was barefoot when she missed the last step and fell forward hitting her head and her right leg and she thinks her arm got caught in the railing on the stairs. She tells me she tumbled forward and did a somersault. She states she did not lose consciousness and she is not on a blood thinner. She states her head feels okay her leg feels okay and she is walking on it fine but she is worried about her right forearm because it is very tender to touch. She denies any pain in her wrist or elbow or shoulder. She tells me she has a previous rotator cuff surgery so she was concerned about that but her shoulder seems to be okay. [facility] Medical History History of abnormal cervical Pap smear High calcium levels Anxiety Psoriasis Family hx-breast malignancy Pain of right heel Surgical History Hx of shoulder surgery Hx of colonoscopy H/O LEEP Hx of cholecystectomy Status post breast reduction History of hemorrhoidectomy History of tubal ligation Family History Father No problems noted. Mother HTN (hypertension) Breast cancer, Onset Age: 78 Social History Housing: House Alcohol intake: current Alcohol intake frequency: a few times a week Alcohol type: wine Patient Tobacco Use Status: Former Tobacco user e-Cigarette/Vaping Use: Never Used Second Hand Smoke Exposure: No Current occupational status: employed Current occupation: [employer] [place] [employer] Current occupational exposures/hazards: Yes Cognitive needs: No Hearing needs: No Vision needs: No Female Reproductive History Menstrual Age of Menarche: 14 Review of Systems Const All systems reviewed & are unremarkable except as noted in HPI and below Physical Exam Vital Signs: Last Vital Signs Pulse 74 04/10/24 13:07 BP 130/90 H 04/10/24 13:07 Pulse Ox 98 04/10/24 13:07 Oxygen Delivery Method Room Air 04/10/24 13:07 BMI result Body Mass Index 26.5 Const General: cooperative, healthy appearing, comfortable, no acute distress and well developed Orientation/consciousness: patient oriented x3 Limitations: no limitations HEENT Head: Yes normal to inspection Ears: hearing grossly normal bilaterally General nose exam: Normal external nose present Face and sinus: Yes normal facial exam Eyes General: appearance normal, both eyes and all related structures Neck Neck: Yes normal visual inspection and Yes full ROM Resp Effort & Inspection: normal respiratory effort and able to speak in complete sentences Skin General skin exam: no rashes or lesions noted Neuro General: patient oriented x3 Extrem Other: 5/5 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 strength bilaterally, sensation intact bilateral upper extremities General: Yes normal to inspection Right upper extremity: shoulder/upper arm Details: normal to inspection and normal ROM, elbow/forearm Details: normal to inspection, tenderness Location: of the mid-shaft forearm, normal ROM and abrasion (very mild abrasion/erythema mid forearm dorsal aspect); no swelling, no unusual warmth, no lacerations, no ecchymosis and no deformity and wrist Details: normal to inspection and normal ROM; no tenderness and no swelling Assessment & Plan Assessment & Plan (1) Fall down stairs: Code(s): W10.8XXA - Fall (on) (from) other stairs and steps, initial encounter Qualifiers: Encounter type: initial encounter Qualified Code(s): W10.8XXA - Fall (on) (from) other stairs and steps, initial encounter Plan: As patient thinks she got her arm caught in the railing of the stairs as she fell and it is very tender to palpation, get we will get a right forearm x-ray. Right wrist and elbow and shoulder seem completely fine on exam. My interpretation of the right forearm x-ray is no acute fracture or dislocation. Recommended patient rest it use ice and Aleve. (2) Right forearm pain: Code(s): M79.631 - Pain in right forearm Plan: see above Plan see above Orders: Orders XR forearm RT 2V Today M79.631 - Pain in right forearm, W10.8XXA - Fall (on) (from) other stairs and steps, initial encounter Coding Level of Care Code Est Pt Level 4 (11587) Diagnoses Fall down stairs, initial encounter W10.8XXA Encounter type: initial encounter Right forearm pain M79.631
== END 2024-04-10 14:39 | disposition home or self-care (01) ==
PROVIDERS: PCP Nurse Practitioner Family; Visit Provider Physician Assistant
DX: M79.631 Pain in right forearm (principal); W10.8XXA Fall (on) (from) other stairs and steps, initial encounter

== ENCOUNTER → 2024-04-10 12:59 | Outpatient (BNVA) | payer OTHER, SELFPAY | PROVIDERS: PCP Nurse Practitioner Family; Visit Provider Physician Assistant ==

== ENCOUNTER 2024-04-10 13:18 | Outpatient (REF) | payer OTHER, SELFPAY ==
--- NOTE | ~2024-04-10 | XR_ITS ---
EXAMINATION: XR FOREARM, RIGHT CLINICAL INFORMATION: Fall on stairs COMPARISON: None available. TECHNIQUE: AP and lateral views of the right forearm were obtained. FINDINGS: The bones and soft tissues are unremarkable. No fracture. Imaged portions of the elbow and wrist show no evidence of acute osseous injury. XR/XR forearm RT 2V IMPRESSION: Unremarkable examination. Electronically signed by: Sg Wise MD 04/11/2024 09:39 AM EDT
== END 2024-04-10 13:19 | disposition home or self-care (01) ==
LOC: HO.HMGCX 13:18
PROVIDERS: PCP Nurse Practitioner Family; Visit Provider Physician Assistant
DX: M79.631 Pain in right forearm (principal); W10.8XXA Fall (on) (from) other stairs and steps, initial encounter
CPT/HCPCS: 73090

== ENCOUNTER → 2024-07-01 15:33 | Outpatient (BNVA) | payer OTHER, SELFPAY | PROVIDERS: PCP Nurse Practitioner Family; Visit Provider Physician Assistant Medical | DX: Z13.89 Encounter for screening for other disorder (principal) | CPT/HCPCS: 99202 ==

== ENCOUNTER → 2024-07-05 15:31 | Outpatient (BNVA) | payer OTHER, SELFPAY | PROVIDERS: PCP Nurse Practitioner Family; Visit Provider Physician Assistant Medical | DX: Z13.89 Encounter for screening for other disorder (principal) | CPT/HCPCS: 99213 ==

== ENCOUNTER → 2024-07-09 11:07 | Outpatient (BNVA) | payer OTHER, SELFPAY | PROVIDERS: PCP Nurse Practitioner Family; Visit Provider Physician Assistant Medical | DX: Z13.89 Encounter for screening for other disorder (principal) | CPT/HCPCS: 99213 ==

== ENCOUNTER → 2024-07-23 10:04 | Outpatient (BNVA) | payer OTHER, SELFPAY | PROVIDERS: PCP Nurse Practitioner Family; Visit Provider Physician Assistant Medical | DX: Z13.89 Encounter for screening for other disorder (principal) | CPT/HCPCS: 72040; 72072; 99214 ==

== ENCOUNTER 2024-07-28 14:48 | Outpatient (REF) | END 2024-07-28 14:49 | disposition home or self-care (01) | LOC: HO.MRI 14:48 | DX: M54.12 Radiculopathy, cervical region (principal) | CPT/HCPCS: 72141 ==

== ENCOUNTER → 2024-07-28 15:04 | Outpatient (BNV) | payer OTHER, SELFPAY | PROVIDERS: PCP Nurse Practitioner Family; Visit Provider Radiology Diagnostic Radiology | DX: M54.12 Radiculopathy, cervical region (principal) | CPT/HCPCS: 72141 ==

== ENCOUNTER 2024-08-08 08:42 | Outpatient (AMB) | payer OTHER, SELFPAY ==
[2024-08-08 08:45] VITALS: BP 152/78; PULSE 91; O2SAT 96; BMI 27.5
--- NOTE | 2024-08-08 08:45 | MHC.OFFVIS ---
Vital Signs 08/08/24 08:45 Height 5 ft 2 in Weight 150 lb 8 oz BMI 27.5 BP 152/78 H Blood Pressure Location Lt brachial Position Sitting Pulse 91 Pulse Source Pulse Oximeter Pulse Oximetry (%) 96 Oxygen Delivery Method Room Air Intake Visit Reasons: Left cervical radiculopathy WC/aubrey from 08/01 Allergies lidocaine [LIDOCAINE] Allergy (Unknown, Verified 08/08/24 08:48) UNKNOWN oxycodone [From PERCOCET] Allergy (Unknown, Verified 08/08/24 08:48) VOMITING HPI Comments Details: Alyx is a very pleasant 59-year-old female who presents to the office today for evaluation and management of her left neck/shoulder pain Referred here by work connections. 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 To avoid her patient falling to the ground Alyx lowered him which caused sudden pain to the left shoulder/neck. She has undergone x-ray and CT scan, results as per below Currently attending physical therapy with some improvement though feels like it has stalled. Minimal improvement with muscle relaxers, nonsteroidal anti-inflammatory medications, oral steroids. Denies previous attempts at chiropractor, acupuncture, massage or injections Endorses pain mostly along medial aspect of the left shoulder blade. Tenderness to palpation. Worse with use of the left arm. Endorses intermittent pain down the left arm and continuous numbness of the left pinky. Pain today is rated as a 2/10, constant. Worse with movements and at the end of the day. In terms of muscle damage condition is described as dull, sore, hurting, aching, heavy, stabbing, tingling Pain is negatively impacting patient's sleep, ability to perform activities of daily living, ability to function normally, work, mood Denies implantable devices, pacemaker or defibrillator Denies current use of anticoagulants Denies current use of nicotine, tobacco, illicit substances. Endorses social EtOH use. [facility] Medical History History of abnormal cervical Pap smear High calcium levels Anxiety Psoriasis Family hx-breast malignancy Pain of right heel Surgical History Hx of shoulder surgery Hx of colonoscopy H/O LEEP Hx of cholecystectomy Status post breast reduction History of hemorrhoidectomy History of tubal ligation Family History Father No problems noted. Mother HTN (hypertension) Breast cancer, Onset Age: 78 Social History Housing: House Alcohol intake: current Alcohol intake frequency: a few times a week Alcohol type: wine Patient Tobacco Use Status: Former Tobacco user e-Cigarette/Vaping Use: Never Used Second Hand Smoke Exposure: No Current occupational status: employed Current occupation: [employer] [place] [employer] Current occupational exposures/hazards: Yes Cognitive needs: No Hearing needs: No Vision needs: No Female Reproductive History Menstrual Age of Menarche: 14 Review of Systems Const All systems reviewed & are unremarkable except as noted in HPI and below Physical Exam Vital Signs: Last Vital Signs Pulse 91 08/08/24 08:45 BP 152/78 H 08/08/24 08:45 Pulse Ox 96 08/08/24 08:45 Oxygen Delivery Method Room Air 08/08/24 08:45 BMI result Body Mass Index 27.5 General: awake, alert, oriented. Answers questions appropriately. Fully engaged in examination. Skin: warm, dry, intact HEENT: Normocephalic. Hearing intact. Cardiac: External chest normal in appearance. Respiratory: No cough, audible wheezing or stridor. Abdomen: without gross distension. MS: No obvious swelling or deformities. Able to transition from sit to stand unassisted. Ambulates with bilaterally normal heel strike and toe off Cervical Spine: Visible inspection without gross abnormality Moderate tenderness over left lower cervical vertebrae and paraspinal muscles. Tenderness to palpation medial border left scapula. Spurling compression test positive left BUE strength 5/5 Neurological: Oriented to person, place, time and situation. Thought process intact. No gait abnormalities appreciated. Psychiatric: Appropriate mood and affect. Good judgment and insight. Results Reviewed Results Reviewed: 07/2024 MR/MR cervical spine wo con FINDINGS: Craniocervical junction is intact. There is mild bone marrow STIR signal within the anterior and posterior elements of C4, C5-C6 and C6-7. There is multilevel marginal osteophyte formation and disc desiccation C3 C7. There is a grade 1 anterolisthesis C7-T1. There is a grade 1 retrolisthesis at C4-5 and C5-6 levels. The cervical spinal cord signal is normal. C2-3: Left facet joint hypertrophy resulting in left neuroforamina narrowing. No central spinal canal stenosis. No cord compression. C3-4: There is a Central broad-based disc osteophyte complex formation resulting in ventral indentation to the spinal cord. No cord signal abnormality. No neuroforamina stenosis. C4-5: Central broad-based disc osteophyte complex formation abutting the cord. No neuroforamina stenosis. C5-6: Central and right foraminal disc osteophyte complex formation resulting in right neuroforamina stenosis. No cord compression. C6-7: Broad-based disc osteophyte complex formation resulting in ventral deformity of the thecal sac. No cord compression. No cord signal abnormality. C7-T1: Grade 1 anterolisthesis resulting in bilateral neuroforamina stenosis. No cord compression. No cord signal abnormality. No prevertebral compartment hematoma, mass or fluid collection. Flow-void signal within the main vessels is normal. Codominant vertebral arteries. IMPRESSION: Multilevel cervical spondylosis C3 C7 resulting in grade 1 anterolisthesis C7-T1 causing bilateral neuroforamina stenosis and compressing the exiting nerve roots and central spinal canal stenosis without cord compression at C4-5 and to a lesser extent C3-4 and C5-6 levels. No cord edema and or myelopathy. CS XR 07/2024 Assessment & Plan Assessment & Plan (1) Cervical radiculopathy: Code(s): M54.12 - Radiculopathy, cervical region Category: Medical Plan Alyx presented to the office today for evaluation management of her left neck pain History, physical exam and provocative testing consistent with cervical radiculopathy She has exhausted conservative therapy including PT, home exercise program, NSAIDs, muscle relaxers all without improvement of her symptoms Zynex TENS unit ordered Salonpas patches ordered. Apply to most painful area once daily as needed Discussed options for treatment including diagnostic interventional testing, epidural steroid injections, peripheral nerve stimulation with Sprint, RFA and more permanent neuromodulation. Will schedule for fluoroscopy guided left C7-T1 parasagittal HAWA with local anesthetic. Patient requesting Ativan to be sent for procedure. All questions and concerns have been answered and patient agrees with the plan. Follow up after injections, sooner if needed. Medications: New camphor-methyl salicyl-menthol 3.1 %-10 %-6 % (large) (Salonpas) may leave on for up to 12 hrs 1 patch topical DAILY PRN 6 ea 12RF pain Coding Level of Care Code New Pt Level 4 (31359) Complex EM visit Add On G2211 Diagnoses Cervical radiculopathy M54.12
== END 2024-08-08 09:27 | disposition home or self-care (01) ==
PROVIDERS: PCP Nurse Practitioner Family; Referring Provider Physician Assistant Medical; Visit Provider Registered Nurse Emergency
DX: M54.12 Radiculopathy, cervical region (principal)
CPT/HCPCS: 99204; G2211

== ENCOUNTER → 2024-08-08 08:42 | Outpatient (BNVA) | payer OTHER, SELFPAY | PROVIDERS: PCP Nurse Practitioner Family; Referring Provider Physician Assistant Medical; Visit Provider Registered Nurse Emergency | DX: M54.12 Radiculopathy, cervical region (principal) | CPT/HCPCS: 99202 ==

== ENCOUNTER → 2024-08-08 13:57 | Outpatient (BNVA) | payer OTHER, SELFPAY | PROVIDERS: PCP Nurse Practitioner Family; Visit Provider Physician Assistant Medical | DX: Z13.89 Encounter for screening for other disorder (principal) | CPT/HCPCS: 99213 ==

== ENCOUNTER → 2024-08-22 09:53 | Outpatient (BNVA) | payer OTHER, SELFPAY | PROVIDERS: PCP Nurse Practitioner Family; Visit Provider Physician Assistant Medical | DX: Z13.89 Encounter for screening for other disorder (principal) | CPT/HCPCS: 99213 ==

== ENCOUNTER 2024-08-27 13:52 | Outpatient (RCR) | payer OTHER, SELFPAY ==
--- NOTE | 2024-07-12 14:32 | MHC.PT.EP ---
[facility] [place] Office [place] Office [place] Office [address] [phone] F: [phone] F: [phone] F: [phone] F: [phone] Physical Therapy Plan of Care Date of Evaluation: 07/12/24 Date of Surgery: Diagnosis: LEFT SCAPULAR MS STRAIN (KP) Assessment: DIANE IS A PLEASANT 58 OLD FEMALE [employer] [place] EM[employer]OY[employer] WHO PRESENTS WITH PERISCAPULAR PAIN FOLLOWING AN INCIDENT OF A PATIENT THROWING THEMSELVES TO THE FLOOR AND DIANE ATTEMPTING TO STOP FALL. SHE WAS ABLE TO LOWER THE Pt TO THE FLOOR AND FINISH HER SHIFT. OVERNIGHT SHE NOTED INCREASED SPASMS AND THE NEXT AM WENT TO AND REFERRED PT. OVERALL, SPASMS HAVE DECREASED AND IS CURRENTLY ON DAY 3 OF PRED COURSE. SYMPTOMS ARE REPORTED CONSTANT , MUSCULAR AND INDICATED IN LEFT TOPHER SCAP REGION AND INTO TRICEPS. AT TIMES PAIN SHOOTS INTO LATERAL ASPECT OF HAND. SHE STATES BENDING AND LIFTING INCREASE PAIN. HEAT HELPS TO IMPROVE SYMPTOMS. SHE RESIDES IN PRIVATE HOME WITH HER THREE SONS WHO ARE AVAILABLE TO ASSIST IF NEEDED. CURRENTLY SHE IS OOW. UPON EXAM IMPAIRMENTS INCLUDE DECREASED CERVICAL ROM AND DECREASED THORACIC VERTEBRAL MOBILITY, DECREASED UE AND UPPER BACK STRENGTH, ALTERED POSTURE AND POSITIONING, DECREASED TISSUE MOBILITY AND INCREASED PAIN. FUNCTIONAL LIMITATIONS INCLUDE DECREASED TOLERANCE TO LIFTING,CARRYING, PUSHING AND PULLING, REACHING INTO CABINET. SHE REPORTS DECREASED PARTICIPATION IN COMMUNITY AND RECREATIONAL ACTIVITIES. SHE REPORTS DISRUPTED SLEEP AND IS CURRENTLY OOW. Frequency and Duration: The patient will be seen 2 X WEEK FOR 4 WEEKS Short Term Goals: INITIATE HEP AND PROMOTE SELF MANAGEMENT OF SYMPTOMS Application Support Developer Goals: FULL, PAIN FREE CROM FULL UE AND UPPER BACK STRENGTH TO LIFT AND CARRY UP TO 20# USING CORRECT BODY MECHANICS WITHOUT PAIN RTW FT/FD Treatment Plan: Modalities to reduce pain, spasms and effusion. Manual therapy to restore motion and function. Therapeutic exercise to improve strength and flexibility. Neuromuscular re-education for posture and balance. Therapeutic activities to return to functional activities of daily living. Electronically signed by: TEENA DURAN PT DPT Please sign and return to therapist. Thank you for your referral.
== END 2024-10-04 07:55 | disposition home or self-care (01) ==
LOC: HO.PT 13:52
PROVIDERS: PCP Nurse Practitioner Family; Visit Provider Physician Assistant Medical
DX: S13.4XXA Sprain of ligaments of cervical spine, initial encounter (principal)
CPT/HCPCS: 97033; 97110; 97140; 97161; 97530

== ENCOUNTER → 2024-09-05 09:56 | Outpatient (BNVA) | payer OTHER, SELFPAY | PROVIDERS: PCP Nurse Practitioner Family; Visit Provider Physician Assistant Medical | DX: Z13.89 Encounter for screening for other disorder (principal) | CPT/HCPCS: 99213 ==

== ENCOUNTER → 2024-09-11 11:41 | Outpatient (BNVA) | payer OTHER, SELFPAY | PROVIDERS: PCP Nurse Practitioner Family; Visit Provider Physician Assistant | DX: Z13.89 Encounter for screening for other disorder (principal) | CPT/HCPCS: 99213 ==

== ENCOUNTER 2024-09-19 07:50 | Outpatient (REF) | payer OTHER, SELFPAY ==
--- NOTE | ~2024-09-19 | FL_ITS ---
EXAMINATION: FL GUIDANCE ONLY HISTORY: M54.12 - Radiculopathy, cervical region COMPARISON: None available. TECHNIQUE: Fluoroscopy time: 0.3 minutes. Cumulative Dose: 1.46 mGy. DAP: 0.58213 mGym2 Images: 2. FINDINGS: Images demonstrate a needle and contrast material in the cervical region on the left. FL/FL guidance in treatment room IMPRESSION: Fluoroscopy during procedure. Please see procedure report for additional information. Electronically signed by: Sergio Mark MD 09/19/2024 03:04 PM EDT
== END 2024-09-19 07:51 | disposition home or self-care (01) ==
LOC: CF 07:50
PROVIDERS: Visit Provider Internal Medicine
DX: M54.12 Radiculopathy, cervical region (principal)
CPT/HCPCS: 62321; J1100; J2003; Q9967

== ENCOUNTER 2024-09-19 09:48 | Outpatient (AMB) | payer OTHER, SELFPAY ==
[2024-09-19 09:53] VITALS: BP 125/74; PULSE 78; RESP 16; O2SAT 100
--- NOTE | 2024-09-19 09:53 | MHC.OFFVIS ---
Vital Signs 09/19/24 09:53 09/19/24 10:48 BP 125/74 128/81 Blood Pressure Location Lt brachial Lt brachial Position Sitting Sitting Respiration 16 16 Pulse 78 80 Pulse Source Pulse Oximeter Pulse Oximeter Pulse Oximetry (%) 100 100 Oxygen Delivery Method Room Air Room Air Intake Visit Reasons: Left C7-T1 parasagittal interlaminar HAWA/ativan Statistical Consultant Required: No Allergies lidocaine [LIDOCAINE] Allergy (Unknown, Verified 09/19/24 09:53) UNKNOWN oxycodone [From PERCOCET] Allergy (Unknown, Verified 09/19/24 09:53) VOMITING Medication List - Last Reconciled 09/19/24 by Cheryl Macdonald LPN betamethasone valerate 0.1% 1 appl topical DAILY PRN camphor-methyl salicyl-menthol 3.1 %-10 %-6 % (large) (Salonpas) 1 patch topical DAILY PRN fluticasone propionate 50 mcg/actuation 2 sprays intranasal DAILY PRN gabapentin 200 mg (2 x 100 mg) PO BEDTIME lorazepam (Ativan) 1 mg PO ONCE omeprazole 20 mg PO DAILY tretinoin 0.1% 1 appl topical BEDTIME HPI HPI Left C7-T1 parasagittal interlaminar HAWA/ativan: Details: Patient presents for scheduled procedure. Denies any recent cough, cold, infection, fever or other significant changes in medical history since last office visit. [facility] Medical History History of abnormal cervical Pap smear High calcium levels Anxiety Psoriasis Family hx-breast malignancy Pain of right heel Surgical History Hx of shoulder surgery Hx of colonoscopy H/O LEEP Hx of cholecystectomy Status post breast reduction History of hemorrhoidectomy History of tubal ligation Family History Father No problems noted. Mother HTN (hypertension) Breast cancer, Onset Age: 78 Social History Housing: House Alcohol intake: current Alcohol intake frequency: a few times a week Alcohol type: wine Patient Tobacco Use Status: Former Tobacco user e-Cigarette/Vaping Use: Never Used Second Hand Smoke Exposure: No Current occupational status: employed Current occupation: [employer] [place] [employer] Current occupational exposures/hazards: Yes Cognitive needs: No Hearing needs: No Vision needs: No Female Reproductive History Menstrual Age of Menarche: 14 Physical Exam Vital Signs: Last Vital Signs Pulse 78 09/19/24 09:53 Resp 16 09/19/24 09:53 BP 125/74 09/19/24 09:53 Pulse Ox 100 09/19/24 09:53 Oxygen Delivery Method Room Air 09/19/24 09:53 Office Procedures AMB Joint Injection/Aspiration Joint Injection/Aspiration Details: Interlaminar epidural steroid injection, C7/T1, Left parasaggital After obtaining written consent, pre-procedure blood pressure and heart rate were stable and recorded in the nursing record. The patient was placed in the prone position. The cervicothoracic area was widely prepped with chloraprep and draped in sterile fashion. Fluoroscopic guidance was used to identify the desired interlaminar space and for needle placement. Due to allergy, only a skin wheal was given. A 20-gauge Driscoll needle was advanced to the epidural space using loss of resistance to contrast technique under fluoroscopic AP and contralateral oblique views. There was no evidence of heme or CSF and no paresthesias were elicited with needle placement. Confirmation of epidural needle placement was performed with 1cc of omnipaque 180. Next 3 ml saline mixed with 10 mg Dexamethasone was administered epidurally with transient pain elicited on injection. The needle tract tubing was then cleared with restyletting. The needle was removed, skin cleansed and a sterile bandage was applied. The patient tolerated the procedure well and no complications were encountered. Following the procedure the patient's vital signs were stable. The patient was discharged home in good condition with post-procedural instructions. Time Out: Immediately prior to the procedure, the following was verbally confirmed that there is a signed consent form and that the correct patient, planned procedure, site and side are consistent with documentation and that necessary equipment and/or blood products are available prior to the start of the case. Complications: none EBL: <2 cc Coding 24913 - Cervical Epidural/Interlaminar with fluoroscopy Procedure code (CPT) selection complete Assessment & Plan Assessment & Plan (1) Cervical radiculopathy: Code(s): M54.12 - Radiculopathy, cervical region Category: Medical Plan Patient is status post left C7/T1 HAWA. Patient tolerated procedure well and was discharged home in stable condition with discharge instructions. All questions were answered. We will follow-up via telephone or in clinic to assess response to therapy. A follow-up appointment was made during today's visit. Orders: Orders FL guidance in treatment room Today M54.12 - Radiculopathy, cervical region Coding Level of Care Code Procedure Only Diagnoses Cervical radiculopathy M54.12 CPT Codes Coding - Joint 10: 44716 - Cervical Epidural/Interlaminar with fluoroscopy ([id number])
[2024-09-19 10:48] VITALS: BP 128/81; PULSE 80; RESP 16; O2SAT 100
== END 2024-09-19 11:19 | disposition home or self-care (01) ==
LOC: HO.PMCPRC 09:48
PROVIDERS: PCP Nurse Practitioner Family; Visit Provider Internal Medicine
DX: M54.12 Radiculopathy, cervical region (principal)
CPT/HCPCS: 62321

== ENCOUNTER 2024-09-25 10:18 | Outpatient (AMB) | payer OTHER, SELFPAY ==
--- NOTE | 2024-09-25 10:19 | MHC.OFFVIS ---
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 Allergies lidocaine [LIDOCAINE] Allergy (Unknown, Verified 09/25/24 10:22) UNKNOWN oxycodone [From PERCOCET] Allergy (Unknown, Verified 09/25/24 10:22) VOMITING Medication List - Last Reconciled 09/25/24 by Cheryl Macdonald, SELIN betamethasone valerate 0.1% 1 appl topical DAILY PRN camphor-methyl salicyl-menthol 3.1 %-10 %-6 % (large) (Salonpas) 1 patch topical DAILY PRN fluticasone propionate 50 mcg/actuation 2 sprays intranasal DAILY PRN gabapentin 200 mg (2 x 100 mg) PO BEDTIME lorazepam (Ativan) 1 mg PO ONCE omeprazole 20 mg PO DAILY tretinoin 0.1% 1 appl topical BEDTIME HPI HPI PAIN AFTER PROCEDURE: Details: History of Present Illness The patient is a 59-year-old female presenting with exacerbated neck pain following an epidural steroid injection, more frequent with marked intensity, especially on the left side, accompanied by numbness. The onset correlates with a post-procedure timeline, intensifying significantly the day after exposure to cold during a shower. The symptoms have been consistent since then, showing no improvement. The patient retains numbness in her left pinky, a pre-existing condition unrelated to the injection. She self-administered ibuprofen and gabapentin, with the latter assisting sleep but resulting in side effects of grogginess. Her history includes alteration of her cervical spine curvature, significant straightening. Previous large breasts necessitating reduction surgery might have aggravated her neck posture. Pain Description - Onset and Timing: Worse after an epidural steroid injection last week, worsening over several days post-procedure. - Quality and Character: Intense, shooting pain with numbness. - Primary Location: Left side of the neck. - Radiation: None specified beyond numb area. - Exacerbating Factors: Cold exposure, possible mechanical manipulation from chiropractic adjustments. - Relieving Factors: Gabapentin aiding in sleep. - Interference: Significant impact on daily holding of the head, feeling of numbness affecting quality of life. Physical Exam - Appears afebrile. - Alert and oriented. - Mood and affect appropriate. - Follows and participates in conversation appropriately. - Respiratory effort is unlabored. - Able to transition from sit to stand unassisted. - Ambulates with bilaterally normal heel strike and toe off. - Able to stand and walk on toes and heels. Pain Management - Affect: The patient experiences psychological discomfort due to the pain's intensity, leading to distress and a sense of being scattered due to medication side effects. - Analgesia: Current regimen includes ibuprofen and gabapentin. Gabapentin aids sleep but results in grogginess. - Adverse Effects: Gabapentin causes morning grogginess. - Activities of Daily Living: The patient finds her daily life significantly impacted, with a need to physically support her head. - Aberrant Drug Related Behaviors: None reported. PFSH Medical History History of abnormal cervical Pap smear High calcium levels Anxiety Psoriasis Family hx-breast malignancy Pain of right heel Surgical History Hx of shoulder surgery Hx of colonoscopy H/O LEEP Hx of cholecystectomy Status post breast reduction History of hemorrhoidectomy History of tubal ligation Family History Father No problems noted. Mother HTN (hypertension) Breast cancer, Onset Age: 78 Social History Housing: House Alcohol intake: current Alcohol intake frequency: a few times a week Alcohol type: wine Patient Tobacco Use Status: Former Tobacco user e-Cigarette/Vaping Use: Never Used Second Hand Smoke Exposure: No Current occupational status: employed Current occupation: [employer] [place] [employer] Current occupational exposures/hazards: Yes Cognitive needs: No Hearing needs: No Vision needs: No Female Reproductive History Menstrual Age of Menarche: 14 Physical Exam Vital Signs: Last Vital Signs Pulse 78 09/25/24 10:21 Resp 16 09/25/24 10:21 BP 145/83 H 09/25/24 10:21 Pulse Ox 99 09/25/24 10:21 Oxygen Delivery Method Room Air 09/25/24 10:21 BMI result Body Mass Index 27.1 Assessment & Plan Assessment & Plan (1) Cervical radiculopathy: Code(s): M54.12 - Radiculopathy, cervical region Category: Medical Plan Plan The management involves addressing the worsening neck pain with tramadol for neuropathic relief and adjusting gabapentin timing to reduce side effects. Emphasis is placed on a structured stretching regimen and avoiding high-velocity cervical manipulation. Acupuncture and dry needling are recommended, complementing physical therapy for muscle tension. The rationale and risks associated with cervical interventions were thoroughly explained. Patient adherence and response will guide further interventions, including the potential for additional injections based on recovery trajectory. Patient was informed and verbally consented to the use of an ambient scribe for clinic note documentation during this visit. 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 The benefits of optimized timing for gabapentin were clarified, aiming to minimize grogginess. I emphasized that further epidural steroid injections depend on symptom progress. I discussed the non-preference for chiropractic manipulations in neck issues, suggesting acupuncture and physical therapy alternatives like dry needling. I briefed her on cervical stretching techniques and cervical spine postural corrections. I encouraged proactive symptom management, ensuring informed choice by exploring non-pharmacological methods to fortify long-term spine health. Future evaluations will reassess the necessity of additional interventions based on her recovery. Patient Instructions - Follow the prescribed tramadol dosage for pain relief. - Adjust the timing of gabapentin, taking it earlier in the evening. - Begin a regular regimen of cervical spine stretches focusing on posture correction. - Avoid chiropractic high-velocity neck manipulations. - Explore acupuncture and discuss dry needling with your physical therapist. - Report any significant changes in symptoms. - Follow up for reassessment if symptoms do not improve or worsen. Medications: New tramadol 50 mg PO BID PRN 60 tabs 0RF pain Coding Level of Care Code Est Pt Level 3 (05153) Diagnoses Cervical radiculopathy M54.12
[2024-09-25 10:21] VITALS: BP 145/83; PULSE 78; RESP 16; O2SAT 99; BMI 27.1
== END 2024-09-25 10:51 | disposition home or self-care (01) ==
LOC: HO.PMC 10:19
PROVIDERS: PCP Nurse Practitioner Family; Visit Provider Internal Medicine
DX: M54.12 Radiculopathy, cervical region (principal)
CPT/HCPCS: 99213

== ENCOUNTER → 2024-09-25 10:18 | Outpatient (BNVA) | payer OTHER, SELFPAY | PROVIDERS: PCP Nurse Practitioner Family; Visit Provider Internal Medicine | DX: M54.12 Radiculopathy, cervical region (principal) | CPT/HCPCS: 99212 ==

== ENCOUNTER → 2024-09-26 09:55 | Outpatient (BNVA) | payer OTHER, SELFPAY | PROVIDERS: PCP Nurse Practitioner Family; Visit Provider Physician Assistant Medical | DX: Z13.89 Encounter for screening for other disorder (principal) | CPT/HCPCS: 99213 ==

== ENCOUNTER → 2024-10-03 11:16 | Outpatient (BNVA) | payer OTHER, SELFPAY | PROVIDERS: PCP Nurse Practitioner Family; Visit Provider Physician Assistant Medical | DX: Z13.89 Encounter for screening for other disorder (principal) | CPT/HCPCS: 99213 ==

== ENCOUNTER → 2024-10-15 14:04 | Outpatient (BNVA) | payer OTHER, SELFPAY | PROVIDERS: PCP Nurse Practitioner Family; Visit Provider Physician Assistant Medical | DX: Z13.89 Encounter for screening for other disorder (principal) | CPT/HCPCS: 99213 ==

== ENCOUNTER 2024-10-16 09:47 | Outpatient (AMB) | payer OTHER, SELFPAY ==
[2024-10-16 10:14] VITALS: BP 127/92; PULSE 93; O2SAT 97; BMI 27.6
--- NOTE | 2024-10-16 10:14 | MHC.OFFVIS ---
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 Required: No Allergies oxycodone [From PERCOCET] Allergy (Unknown, Verified 10/16/24 10:15) VOMITING Medication List - Last Reconciled 10/16/24 by Opal Arredondo, [employer] TECHNICIAN betamethasone valerate 0.1% 1 appl topical DAILY PRN camphor-methyl salicyl-menthol 3.1 %-10 %-6 % (large) (Salonpas) 1 patch topical DAILY PRN fluticasone propionate 50 mcg/actuation 2 sprays intranasal DAILY PRN gabapentin 200 mg (2 x 100 mg) PO BEDTIME lorazepam (Ativan) 1 mg PO ONCE omeprazole 20 mg PO DAILY tramadol 50 mg PO BID PRN tretinoin 0.1% 1 appl topical BEDTIME HPI Comments Details: The patient is a 59-year-old female presenting with a history of cervical radiculopathy 3 weeks S/P left C7/T1 interlaminar HAWA. Recent exacerbation followed an injection, resulting in pain radiating up the neck and to the back of the head. This was uncharacteristic as previous symptoms involved radiation down the arm. Following the injection, she experienced significant pain, which resolved after approx 5 days. Injection was performed without lidocaine due to an allergy previously noted but later removed. Currently, there is persistent numbness in the left pinky finger and up the back of her neck. The patient reports functional recovery, having returned to full occupational and recreational activities. She continues physical therapy and strength training as part of her rehabilitation efforts. There remains a concern for the temporal benefit provided by the injection, with the patient contemplating future treatment options contingent on symptom recurrence. - Onset: 06/30/2024 after work related injury - Quality: Shear pain - Primary Location: Neck and head - Radiation: Up the neck and back of the head - Numbness: Left pinky finger and back of neck - Resolution: Pain subsided approx 5 days post-injection - Exacerbating Factors: Initial response to injection - Relieving Factors: Passage of time, physical therapy - Interference: Previously interfered with daily activities but patient has resumed normal functioning - Affect: Initial distress and anxiety due to acute post-injection pain and numbness, relieved over days. - Analgesia: Improvement in pain after initial severe reaction to injection; currently no mention of ongoing pain management medication. - Adverse Effects: Initial severe pain subsided, with residual numbness in the pinky and neck. - Activities of Daily Living: Resumed full range of activities including work and yard duties. - Aberrant Drug Related Behaviors: None reported or observed. [facility] Medical History History of abnormal cervical Pap smear High calcium levels Anxiety Psoriasis Family hx-breast malignancy Pain of right heel Surgical History Hx of shoulder surgery Hx of colonoscopy H/O LEEP Hx of cholecystectomy Status post breast reduction History of hemorrhoidectomy History of tubal ligation Family History Father No problems noted. Mother HTN (hypertension) Breast cancer, Onset Age: 78 Social History Housing: House Alcohol intake: current Alcohol intake frequency: a few times a week Alcohol type: wine Patient Tobacco Use Status: Former Tobacco user e-Cigarette/Vaping Use: Never Used Second Hand Smoke Exposure: No Current occupational status: employed Current occupation: [employer] Current occupational exposures/hazards: Yes Cognitive needs: No Hearing needs: No Vision needs: No Female Reproductive History Menstrual Age of Menarche: 14 Review of Systems Const Details: - Neurological: Reports numbness in Left pinky, denies other sensory changes. - Musculoskeletal: Reports pain up neck and head post-injection that has since resolved, denies other joint or muscle pain. Physical Exam Vital Signs: Last Vital Signs Pulse 93 10/16/24 10:14 BP 127/92 H 10/16/24 10:14 Pulse Ox 97 10/16/24 10:14 Oxygen Delivery Method Room Air 10/16/24 10:14 BMI result Body Mass Index 27.6 General: awake, alert, oriented. Answers questions appropriately. Fully engaged in examination. Skin: warm, dry, intact HEENT: Normocephalic. Hearing intact. Cardiac: External chest normal in appearance. Respiratory: No cough, audible wheezing or stridor. Abdomen: without gross distension. MS: No obvious swelling or deformities. Neurological: Oriented to person, place, time and situation. Thought process intact. No gait abnormalities appreciated. Psychiatric: Appropriate mood and affect. Good judgment and insight. Results Reviewed Results Reviewed: 07/2024 MR/MR cervical spine wo con FINDINGS: Craniocervical junction is intact. There is mild bone marrow STIR signal within the anterior and posterior elements of C4, C5-C6 and C6-7. There is multilevel marginal osteophyte formation and disc desiccation C3 C7. There is a grade 1 anterolisthesis C7-T1. There is a grade 1 retrolisthesis at C4-5 and C5-6 levels. The cervical spinal cord signal is normal. C2-3: Left facet joint hypertrophy resulting in left neuroforamina narrowing. No central spinal canal stenosis. No cord compression. C3-4: There is a Central broad-based disc osteophyte complex formation resulting in ventral indentation to the spinal cord. No cord signal abnormality. No neuroforamina stenosis. C4-5: Central broad-based disc osteophyte complex formation abutting the cord. No neuroforamina stenosis. C5-6: Central and right foraminal disc osteophyte complex formation resulting in right neuroforamina stenosis. No cord compression. C6-7: Broad-based disc osteophyte complex formation resulting in ventral deformity of the thecal sac. No cord compression. No cord signal abnormality. C7-T1: Grade 1 anterolisthesis resulting in bilateral neuroforamina stenosis. No cord compression. No cord signal abnormality. No prevertebral compartment hematoma, mass or fluid collection. Flow-void signal within the main vessels is normal. Codominant vertebral arteries. IMPRESSION: Multilevel cervical spondylosis C3 C7 resulting in grade 1 anterolisthesis C7-T1 causing bilateral neuroforamina stenosis and compressing the exiting nerve roots and central spinal canal stenosis without cord compression at C4-5 and to a lesser extent C3-4 and C5-6 levels. No cord edema and or myelopathy. CS XR 07/2024 Assessment & Plan Assessment & Plan (1) Cervical radiculopathy: Code(s): M54.12 - Radiculopathy, cervical region Category: Medical Plan The patient has reported post-injection exacerbation of cervical radiculopathy, subsequently improved in severity. We plan to observe for recurrence of symptoms and assess for potential repeat intervention over the next few months. Cease marking lidocaine as an allergy in medical records to facilitate future procedures, patient reports her PCP has removed this as an allergy from her EMR. Recommend ongoing physical therapy and strength regimens to optimize current recovery. Exploratory actions such as neurosurgical consultation will be considered should symptoms return. I discussed the findings and management of cervical radiculopathy, particularly post-injection effects. We talked about the temporary aggravation of symptoms likely due to injection-related inflammation and the expected steroid benefit timeline. Acknowledged the extensive improvement, and I strongly encouraged continued physical therapy. We reviewed future options, including further injections or neurosurgical referral if symptoms persist. Discussed the previously noted lidocaine allergy, subsequently removed from records. Outlined the necessity for monitoring symptoms, advising on a return consultation if symptoms redevelop. Patient was informed and verbally consented to the use of an ambient scribe for clinic note documentation during this visit. Patient Instructions: - Continue participating in physical therapy and strengthening exercises. - Monitor symptoms; report any worsening to me immediately. - Schedule a follow-up appointment in three-four months or sooner if symptoms recur. Coding Level of Care Code Est Pt Level 3 (41921) Complex EM visit Add On G2211 Diagnoses Cervical radiculopathy M54.12
== END 2024-10-16 10:22 | disposition home or self-care (01) ==
LOC: HO.PMC 09:47
PROVIDERS: PCP Nurse Practitioner Family; Visit Provider Registered Nurse Emergency
DX: M54.12 Radiculopathy, cervical region (principal)
CPT/HCPCS: 99213; G2211

== ENCOUNTER → 2024-10-16 09:47 | Outpatient (BNVA) | payer OTHER, SELFPAY | PROVIDERS: PCP Nurse Practitioner Family; Visit Provider Registered Nurse Emergency | DX: M54.12 Radiculopathy, cervical region (principal); Z98.890 Other specified postprocedural states | CPT/HCPCS: 99212 ==

== ENCOUNTER 2024-10-16 14:10 | Outpatient (RCR) | payer OTHER, SELFPAY ==
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
== END 2024-11-18 08:45 | disposition home or self-care (01) ==
LOC: HO.PT 14:10
PROVIDERS: PCP Nurse Practitioner Family; Visit Provider Physician Assistant Medical
DX: M54.12 Radiculopathy, cervical region (principal); S46.812A Strain of other muscles, fascia and tendons at shoulder and upper arm level, left arm, initial encounter
CPT/HCPCS: 97110; 97140; 97161; 97162

== ENCOUNTER 2024-10-22 09:12 | Outpatient (REF) | payer OTHER, SELFPAY ==
[2024-10-29 14:16] LABS: HPV Genotype 16 Negative (Negative); HPV Genotype 18 Negative (Negative); HPV High Risk Negative (Negative)
== END 2024-10-22 09:13 | disposition home or self-care (01) ==
LOC: HO.LNP 09:12
PROVIDERS: PCP Nurse Practitioner Family; Visit Provider Obstetrics & Gynecology
DX: Z01.419 Encounter for gynecological examination (general) (routine) without abnormal findings (principal)
CPT/HCPCS: 87626; 88175

== ENCOUNTER 2024-10-22 09:12 | Outpatient (AMB) | payer OTHER, SELFPAY ==
--- NOTE | 2024-10-22 09:15 | A.OFFVIS_ITS ---
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 No complaints. Last Pap/HPV was low-grade LINDA, colpo biopsy ECC? ZEV 1 Last Mammogram was BI-RADS 2 in 09/09 Last Colonoscopy was in 10/04, the recommendation was to repeat in 10 years [facility] Medical History LGSIL on Pap smear of cervix History of abnormal cervical Pap smear High calcium levels Anxiety Psoriasis Family hx-breast malignancy Pain of right heel Surgical History Hx of shoulder surgery Hx of colonoscopy H/O LEEP Hx of cholecystectomy Status post breast reduction History of hemorrhoidectomy History of tubal ligation Family History Father No problems noted. Mother HTN (hypertension) Breast cancer, Onset Age: 78 Social History Housing: House Alcohol intake: current Alcohol intake frequency: a few times a week Alcohol type: wine Patient Tobacco Use Status: Former Tobacco user e-Cigarette/Vaping Use: Never Used Second Hand Smoke Exposure: No Current occupational status: employed Current occupation: [employer] [place] [employer] Current occupational exposures/hazards: Yes Cognitive needs: No Hearing needs: No Vision needs: No Female Reproductive History Menstrual Age of Menarche: 14 Date of last pap smear: 10/23/23 History of abnormal pap smear: Yes (ZEV 1) Date of Mammogram: 09/05/23 Review of Systems Const All systems reviewed & are unremarkable except as noted in HPI and below Card Reports as per HPI Resp Reports as per HPI GI Reports as per HPI and Reports no additional complaints Reports as per HPI Physical Exam Vital Signs: BMI result Body Mass Index 27.6 Const General: cooperative, healthy appearing and comfortable Chest Chest palpation & inspection: normal inspection of the chest and normal palpa tion of entire chest wall Breast/axilla inspection: normal inspection of the breasts and normal inspection of the axillae Breast/axilla palpation: normal palpation of the breasts, normal palpation of the axillae and no axillary lymphadenopathy Resp Effort & Inspection: normal respiratory effort Auscultation: clear to auscultation bilaterally Percussion: percussion normal Cardio Palpation: normal PMI Rate: regular rate Rhythm: regular rhythm Heart sounds: no murmurs and no rubs Peripheral pulses: Peripheral pulses 2+ throughout GI Inspection: Yes normal to inspection Palpation (GI): Soft to palpation, nontender, no guarding, not rigid and No hepatosplenomegaly present Percussion: Yes normal to percussion Auscultation: normal bowel sounds Rectal Exam - Female: deferred General: Yes bladder normal to palpation External Female Exam: No lesion Speculum Exam - Vagina: normal appearance of the vagina, normal palpation, normal vaginal discharge and not erythematous Speculum Exam - Cervix: normal appearance of the cervix and normal palpation Bimanual exam- vagina & uterus: normal bimanual exam, normal palpation, uterine size normal, bladder normal to palpation, consistency normal and normal palpation Bimanual Exam- Adnexa, other: normal adnexae, no masses and no tenderness Assessment & Plan Assessment & Plan (1) Well woman exam: Comment: Negative Pap/HPV E6 E7 positive in 2021 ZEV 3 status post LEEP cone with positive margins 2017 ? ZEV 1 in 11/09 Code(s): Z01.419 - Encounter for gynecological examination (general) (routine) without abnormal findings Category: Medical Plan: Co testing done. Counseled the patient about the recommended dietary allowance of 1200 mg of Calcium & 600 IU of vitamin D. Mammogram ordered. The patient was instructed to perform monthly self-breast exams and schedule annual exam in a year. All questions answered and the patient verbalized understanding. Orders: Orders MM tomosynthesis screening BI Today Z12.31 - Encounter for screening mammogram for malignant neoplasm of breast Coding Level of Care Code Est Pt Prev Care 40-64y(13474) Diagnoses Well woman exam Z01.419
[2024-10-22 09:16] VITALS: BP 118/80; BMI 27.6
== END 2024-10-22 09:35 | disposition home or self-care (01) ==
LOC: HO.HWS 09:12
PROVIDERS: PCP Nurse Practitioner Family; Visit Provider Obstetrics & Gynecology
DX: Z01.419 Encounter for gynecological examination (general) (routine) without abnormal findings (principal)
CPT/HCPCS: 99396; 99459

== ENCOUNTER 2024-11-13 10:35 | Outpatient (REF) | payer OTHER, SELFPAY | END 2024-11-13 10:36 | disposition home or self-care (01) | LOC: HO.LNP 10:35 | PROVIDERS: PCP Nurse Practitioner Family; Visit Provider Obstetrics & Gynecology | DX: R87.612 Low grade squamous intraepithelial lesion on cytologic smear of cervix (LGSIL) (principal) | CPT/HCPCS: 57454; 88305 ==

== ENCOUNTER 2024-11-13 10:35 | Outpatient (AMB) | payer OTHER, SELFPAY ==
--- NOTE | 2024-11-13 10:41 | A.OFFVIS_ITS ---
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 Present (Kelsi Edwards) Accompanied by: Self / Same As Patient Allergies oxycodone [From PERCOCET] Allergy (Unknown, Verified 11/13/24 10:41) VOMITING HPI Comments Details: Presenting for abnormal Pap smear showing low-grade LINDA HPV negative PFSH Medical History (Updated 11/13/24 @ 10:46 by Morales Santos MD) LGSIL on Pap smear of cervix History of abnormal cervical Pap smear High calcium levels Anxiety Psoriasis Family hx-breast malignancy Pain of right heel Surgical History Hx of shoulder surgery Hx of colonoscopy H/O LEEP Hx of cholecystectomy Status post breast reduction History of hemorrhoidectomy History of tubal ligation Family History Father No problems noted. Mother HTN (hypertension) Breast cancer, Onset Age: 78 Social History Housing: House Alcohol intake: current Alcohol intake frequency: a few times a week Alcohol type: wine Patient Tobacco Use Status: Former Tobacco user e-Cigarette/Vaping Use: Never Used Second Hand Smoke Exposure: No Current occupational status: employed Current occupation: [employer] [place] [employer] Current occupational exposures/hazards: Yes Cognitive needs: No Hearing needs: No Vision needs: No Female Reproductive History Menstrual Age of Menarche: 14 Review of Systems Const All systems reviewed & are unremarkable except as noted in HPI and below Reports as per HPI and Reports no additional complaints GI Reports no additional complaints Reports no additional complaints Office Procedures Colposcopy Colposcopy: Pre-Procedure Counseling: Before beginning the procedure, I conducted comprehensive counseling with the patient. We thoroughly discussed the procedure itself, including its details, alternatives, and all associated risks. This included but not limited to the following complications such as bleeding, infection, and injury to the vagina, bladder, and vessels, as well as the potential need for transfusion with all its associated risks. Subsequently, the patient sign the consent. Pap smear result: LSIL/HPV negative. Procedure: During the procedure, the following steps were performed: A speculum was inserted, and acetic acid was applied. Colposcopy was conducted, allowing visualization of the transformation zone. Acetowhite lesions were identified at the 6+ 12+1 o'clock position. Cervical biopsies were obtained from the 6+ 12+ 1 o'clock position, followed by an endocervical curettage (ECC). Vaginoscopy of the upper vagina revealed no evidence of aceto-white lesions. Hemostasis was achieved using Monsel solution, and the patient tolerated the procedure well. Post-Procedure Instructions: The patient was advised to promptly contact the office or the after hours answering service or go to the emergency room if experiencing a temperature exceeding 100.4?F, abdominal pain, nausea/vomiting, or bleeding. Additionally, the patient was instructed to abstain from vaginal intercourse and bathtub use. The patient confirmed understanding of these instructions. Discharge Instructions: The patient was instructed to schedule a follow-up appointment in 2 weeks for further evaluation and management. Please note that this note was generated using a voice recognition program, and errors may have occurred during junior media buyer. [id number] of cervix including upper vagina with biopsy and ECC Procedure code (CPT) selection complete Assessment & Plan Assessment & Plan (1) LGSIL on Pap smear of cervix: Code(s): R87.612 - Low grade squamous intraepithelial lesion on cytologic smear of cervix (LGSIL) Category: Medical Plan: Discussed with the patient the result of her abnormal pap, its significance, risk of progression, persistence, and regression. the false positive/negative rate of a Pap smear as a screening test in detecting cervical cancer and the indication for a diagnostic test -colposcopy, biopsy, endocervical curettage. The patient verbalized understanding and agreed with the plan, all questions answered. Colpo biopsy ECC done, see procedure note Orders: Orders AMB Colposcopy Today R87.612 - Low grade squamous intraepithelial lesion on cytologic smear of cervix (LGSIL) Coding Level of Care Code Procedure Only Diagnoses LGSIL on Pap smear of cervix R87.612 CPT Codes Colposcopy - CPT: 57886-[id number] of cervix including upper vagina with biopsy and ECC ([id number])
== END 2024-11-13 10:55 | disposition home or self-care (01) ==
LOC: HO.HWS 10:35
PROVIDERS: PCP Nurse Practitioner Family; Visit Provider Obstetrics & Gynecology
DX: R87.612 Low grade squamous intraepithelial lesion on cytologic smear of cervix (LGSIL) (principal)
CPT/HCPCS: 57454

== ENCOUNTER 2024-11-26 10:43 | Outpatient (AMB) | payer OTHER, SELFPAY ==
--- NOTE | 2024-11-26 10:44 | MHC.OFFVIS ---
Intake Visit Reasons: colpo results Allergies oxycodone [From PERCOCET] Allergy (Unknown, Verified 11/13/24 10:41) VOMITING HPI Comments Details: Presenting post colpo for follow-up. The patient is doing well with no complaints. The pathology showed the following: A. Endocervix, curettage: - Low-grade squamous intraepithelial lesion (ZEV 1). - No endocervical epithelium identified. B. Cervix, 1 o'clock, biopsy: - Low-grade squamous intraepithelial lesion (ZEV 1). - No endocervical epithelium identified. C. Cervix, 6 o'clock, biopsy: - Low-grade squamous intraepithelial lesion (ZEV 1). - No endocervical epithelium identified. D. Cervix, 12 o'clock, biopsy: - Low-grade squamous intraepithelial lesion (ZEV 1). - No endocervical epithelium identified PFSH Medical History LGSIL on Pap smear of cervix History of abnormal cervical Pap smear High calcium levels Anxiety Psoriasis Family hx-breast malignancy Pain of right heel Surgical History Hx of shoulder surgery Hx of colonoscopy H/O LEEP Hx of cholecystectomy Status post breast reduction History of hemorrhoidectomy History of tubal ligation Family History Father No problems noted. Mother HTN (hypertension) Breast cancer, Onset Age: 78 Social History Housing: House Alcohol intake: current Alcohol intake frequency: a few times a week Alcohol type: wine Patient Tobacco Use Status: Former Tobacco user e-Cigarette/Vaping Use: Never Used Second Hand Smoke Exposure: No Current occupational status: employed Current occupation: [employer] Current occupational exposures/hazards: Yes Cognitive needs: No Hearing needs: No Vision needs: No Female Reproductive History Menstrual Age of Menarche: 14 Review of Systems Const All systems reviewed & are unremarkable except as noted in HPI and below Reports as per HPI and Reports no additional complaints GI Reports no additional complaints Reports no additional complaints Telehealth Telehealth Telehealth Platform: Telephone Location of provider rendering services: practice address Location of patient: address on file Patient Identification confirmed using: Name, : Yes Telehealth method: video Patient verbally consented to treatment: Yes Patient verbally consented to billing insurance company: Yes Patient informed of any privacy concerns related to visit: Yes Minutes spent on Phone/Video with Pt.: 2 Assessment & Plan Assessment & Plan (1) Dysplasia of cervix, low grade (ZEV 1): Comment: Since? 2023 Code(s): N87.0 - Mild cervical dysplasia Category: Medical Plan: Discussed with the patient the pathology results of the colposcopy biopsies & endocervical curettage ( mild dysplasia-ZEV 1) since 2023?. Discussed with the patient the sensitivity specificity, positive and negative predictive value in detecting cervical cancer in addition discussed the regression, persistence and progression rates. Recommended co-testing in 12 months, if cytology and or HPV are abnormal will proceed was colposcopy biopsy and endocervical curettage, if lesions gets worse or stays persistent for 1 more year will proceed with loop electric excision procedure. Instructions given to the patient to schedule a co test appointment in 1 year. All questions answered the patient verbalized understanding. I spent a total of 20 minutes reviewing the chart, talking to the patient via phone and documenting in the medical record. Coding Level of Care Code Tele Est Pt Level 3 (28758) Diagnoses Dysplasia of cervix, low grade (ZEV 1) N87.0
== END 2024-11-26 12:52 | disposition home or self-care (01) ==
LOC: HO.HWS 10:43
PROVIDERS: PCP Nurse Practitioner Family; Visit Provider Obstetrics & Gynecology
DX: N87.0 Mild cervical dysplasia (principal)
CPT/HCPCS: 99213

== ENCOUNTER 2024-12-28 16:29 | Emergency (ER) | payer OTHER, SELFPAY ==
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
[2024-12-28 16:32] VITALS: BP 159/89; PULSE 93; RESP 22; TEMP 36.4; O2SAT 97; BMI 27.7
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
[2024-12-28 17:57] VITALS: BP 159/89; PULSE 93; RESP 22; TEMP 36.4; O2SAT 97
== END 2024-12-28 17:57 | disposition home or self-care (01) ==
PROVIDERS: Emergency Provider Emergency Medicine; PCP Nurse Practitioner Family
DX: S00.83XA Contusion of other part of head, initial encounter (principal); Y04.2XXA Assault by strike against or bumped into by another person, initial encounter; Y93.F9 Activity, other caregiving; Y92.89 Other specified places as the place of occurrence of the external cause; Y99.0 Civilian activity done for income or pay
CPT/HCPCS: 70486; 99283; 99284

== ENCOUNTER → 2024-12-28 16:39 | Outpatient (BNV) | payer OTHER, SELFPAY | PROVIDERS: Emergency Provider Emergency Medicine; PCP Nurse Practitioner Family; Visit Provider Radiology Diagnostic Radiology | DX: S05.92XA Unspecified injury of left eye and orbit, initial encounter (principal) | CPT/HCPCS: 70486 ==

== ENCOUNTER 2025-02-17 11:20 | Emergency (ER) | payer OTHER, SELFPAY ==
--- NOTE | ~2025-02-17 | XR_ITS ---
CLINICAL HISTORY: COughing. pnuemonia? Chest Radiograph Comparison: None available Findings: No cardiomegaly. Normal mediastinal contours. No pneumothorax. Question faint opacity in the left lower lung zone. No pleural effusion. Normal upper abdomen. No acute fracture. Impression: Question faint opacity in the left lower lung zone which may indicate pneumonia. This document has been electronically signed by: Mary Leyva MD on 02/17/2025 13:39:54
[2025-02-17 11:22] VITALS: BP 138/81; PULSE 97; RESP 20; TEMP 36.4; O2SAT 98; BMI 24.4
--- NOTE | 2025-02-17 11:28 | ED.GENADULT ---
HPI - General Adult General Chief complaint: Upper Respiratory Symptoms Stated complaint: cold Time Seen by Provider: 02/17/25 11:50 Source: patient, RN notes reviewed and old records reviewed Mode of arrival: ambulatory Limitations: no limitations History of Present Illness ED Provider: King Beal PA-C HPI narrative: 59-year-old female with medical history of anxiety, psoriasis, arthritis, presents to the ED due to 8 days of cold-like symptoms. Patient states symptoms began 8 days ago on Monday (02/09/2025) with cough, yellow sputum, nasal congestion and sinus pressure, intermittent nausea, and diarrhea. Patient states these symptoms have been worsening, with the exception of diarrhea which she states is improving at this time. Patient states she works at [employer] in [employer] floor there was a bad cold going around the floor that she has been in contact with. Patient states last night she is experiencing some chills when trying to go to sleep. Denies fever, abdominal pain, vomiting, black/tarry stool MD complaint: cold like symptoms Related Data Home Medications ?Medication ?Instructions ?Recorded ?Confirmed fluticasone propionate 50 2 spray intranasal DAILY PRN 04/16/20 10/16/24 mcg/actuation nasal spray,suspension omeprazole 20 mg tablet,delayed 20 mg PO DAILY 04/16/20 10/16/24 release Previous Rx's ?Medication ?Instructions ?Recorded tretinoin 0.1 % topical cream 1 appl topical BEDTIME #45 grams 12/16/21 camphor 3.1 %-methyl salicylate 10 1 patch topical DAILY PRN pain #6 08/08/24 %-menthol 6 % topical patch ea (large) (Salonpas) gabapentin 100 mg capsule 200 mg (2 x 100 mg) PO BEDTIME #30 09/11/24 caps lorazepam 1 mg tablet (Ativan) 1 mg PO ONCE anxiety #1 tab 09/18/24 tramadol 50 mg tablet 50 mg PO BID PRN pain #60 tabs 09/25/24 betamethasone valerate 0.1 % 1 appl topical DAILY PRN skin 12/03/24 topical cream irritation #45 grams albuterol sulfate 90 mcg/actuation 1 inh inhalation Q6H PRN shortness 02/17/25 aerosol inhaler (Ventolin HFA) of breath or wheezing #6.7 grams amoxicillin 875 mg-potassium 1 tab PO BID #10 tabs 02/17/25 clavulanate 125 mg tablet doxycycline hyclate 100 mg capsule 100 mg PO BID #10 caps 02/17/25 Allergies Allergy/AdvReac Type Severity Reaction Status Date / Time oxycodone (From PERCOCET) Allergy Unknown VOMITING Verified 02/17/25 11:22 Review of Systems Review of Systems: CONST: Negative for fever, body aches and chills. HENT: Negative for neck pain/stiffness, headache, congestion, sore throat, swelling. POS congestion, sinus pressure/pain EYES: Negative for discharge/pain or vision changes. RESP: Negative for cough/hemoptysis and shortness of breath. POS productive cough CV: Negative chest pain, difficulty breathing, palpitations. ABD: Negative pain, nausea, vomiting. : Negative increase frequency, dysuria, blood in urine or stool. MUSC: Negative for muscle aches, edema. SKIN: Negative rash, lesions/sores. NEURO: Negative headache, dizziness, weakness Yes all other systems are reviewed and are negative PMFSH Past Medical History Medical History LGSIL on Pap smear of cervix History of abnormal cervical Pap smear High calcium levels Anxiety Psoriasis Family hx-breast malignancy Pain of right heel Surgical History Hx of shoulder surgery Hx of colonoscopy H/O LEEP Hx of cholecystectomy Status post breast reduction History of hemorrhoidectomy History of tubal ligation Family History Family History Father No problems noted. Mother HTN (hypertension) Breast cancer, Onset Age: 78 Social History Social History Housing: House Alcohol intake: current Alcohol intake frequency: a few times a week Alcohol type: wine Patient Tobacco Use Status: Former Tobacco user e-Cigarette/Vaping Use: Never Used Second Hand Smoke Exposure: No Advance Directives: No Advance Directives Information Provided: No Current occupational status: employed Current occupation: [employer] Current occupational exposures/hazards: Yes Cognitive needs: No Hearing needs: No Vision needs: No Physical Exam ED Vital Signs: Vital Signs - 24 hr 02/17/25 11:22 Temperature 97.6 F Pulse Rate 97 Respiratory Rate 20 Blood Pressure 138/81 Pulse Oximetry 98 Oxygen Delivery Method Room Air BMI result Body Mass Index 24.4 GENERAL APPEARANCE: ?AxOx4, generally well-appearing, no acute distress. HEENT: ?NC, AT. MMM. EOMI, clear conjunctiva, oropharynx clear. NECK: ?Supple without lymphadenopathy.? No stiffness or restricted ROM. HEART:? Normal rate and regular rhythm, normal S1/S2, no m/r/g LUNGS:? CTAB, moving air well. No crackles or wheezes are heard. ABDOMEN: ?Soft, nontender, nondistended with good bowel sounds heard. EXTREMITIES: ?Without cyanosis, clubbing or edema. NEUROLOGICAL: ?Grossly nonfocal. Alert and oriented, moving all 4 extremities. Observed to ambulate with normal gait. Skin: ?Warm and dry without any rash. Course Course Course Narrative: RME: 59-year-old female presents to ED for URI symptoms. Patient states decreased appetite, runny nose, headache, and coughing. Patient denies any leg swelling calf pain coughing up blood or pitting edema. Chest x-ray COVID influenza ordered Medical Decision Making Medical Decision Making MDM Narrative: 59-year-old female with medical history of anxiety, psoriasis, arthritis, presents to the ED due to 8 days of cold-like symptoms. Patient states symptoms began 8 days ago on Monday (02/09/2025) with cough, yellow sputum, nasal congestion and sinus pressure, intermittent nausea, and diarrhea. Patient states these symptoms have been worsening, with the exception of diarrhea which she states is improving at this time. Patient works at [employer] here and has been exposed to a URI outbreak on the floor. VS on initial observation-normotensive with BP 138/81, pulse rate of 97, respiratory rate of 20, afebrile with oral temperature of 97.6?, O2 saturation 98% on room air. Viral serology negative for COVID/flu. CXR reveals an infiltrate consistent with pneumonia of the lower left lobe. Due to patient's recent contact with [employer] patient is with pneumonia, and her symptoms we will treat with 5 day course of Augmentin and doxycycline. I counseled patient to follow up with her primary care provider in order to ensure her improvement and resolution of symptoms. I counseled patient on strict return precautions. Patient feels comfortable to go home for self-care, afebrile, no tachycardia, no tachypnea. She is in agreement with the plan. Differential Diagnosis Differential Diagnoses: The differential diagnosis associated with the presentation includes Viral illness Pneumonia Bronchitis Sinusitis Admission/Observation Consideration of admission/observation: Escalation of care including admission/observation considered Lab Data MDM Lab Attestation statement: I reviewed the patient's lab results. Labs: Lab Results 02/17/25 Range/Units 11:31 COVID-19 (SANDRA) Negative (Negative) COVID-19 Clin Com See Note Influenza Type A ([facility]ICOLAS[facility]) Negative (Negative) Influenza Type B (NICOLASA) Negative (Negative) Influenza A & B Note See Note Independent Interpretation I performed an independent interpretation of an: Plain X-Ray Interpretation: I independently interpreted the chest x-ray which does not reveal cardiomegaly, pleural effusion, pleural edema, however there is a small infiltrate of the left lower lobe, I agree with the radiologist's interpretation Radiology Impression Discussion of test interpretation with radiology: I have reviewed the radiologist's reading. Radiologist Impression: CXR Findings: No cardiomegaly. Normal mediastinal contours. No pneumothorax. Question faint opacity in the left lower lung zone. No pleural effusion. Normal upper abdomen. No acute fracture. Impression: Question faint opacity in the left lower lung zone which may indicate pneumonia. This document has been electronically signed by: Mary Leyva MD on 02/17/2025 13:39:54 Dictated By: Mary Neal MD Signed By: <Electronically signed by Mary Neal MD in OV> 02/17/25 1340 External Record Review External record reviewed: Inpatient record, Office record and Outpatient record Chronic Conditions Patient?s care impacted by: Other (Anxiety, arthritis, psoriasis) Discharge Plan Discharge Clinical Impression: HCAP (healthcare-associated pneumonia) Patient Disposition: Home, Self-Care Additional Instructions: You were evaluated in the ED today due to sinus pressure and pain, congestion, productive cough. Your viral serology including COVID and flu were negative. Your chest x-ray was positive for left lower lobe pneumonia. I will prescribe you a 5 day course of Augmentin and doxycycline for coverage. I also recommend to start Flonase, nasal saline for additional management of your congestion. Please follow up with your primary care doctor to ensure improvement. Please return to the emergency department if you experience fevers over 100.4?, worsening cough, difficulty breathing, increased work of breathing, worsening nasal congestion, pain when moving your eyes, visual changes, or any new/worsening/concerning symptoms. Prescriptions: New amoxicillin-pot clavulanate 875-125 mg tablet 1 tab PO BID Qty: 10 0RF doxycycline hyclate 100 mg capsule 100 mg PO BID Qty: 10 0RF albuterol sulfate [Ventolin HFA] 90 mcg/actuation HFA aerosol inhaler 1 inh inhalation Q6H PRN (Reason: shortness of breath or wheezing) Qty: 6.7 0RF No Action lorazepam [Ativan] 1 mg tablet 1 mg PO ONCE Qty: 1 0RF Rx Instructions: Take 30 minutes prior to arrival to procedure betamethasone valerate 0.1 % cream 1 appl topical DAILY PRN (Reason: skin irritation) Qty: 45 0RF fluticasone propionate 50 mcg/actuation spray,suspension 2 spray intranasal DAILY PRN omeprazole 20 mg tablet,delayed release (DR/EC) 20 mg PO DAILY tretinoin 0.1 % cream 1 appl topical BEDTIME Qty: 45 3RF Salonpas 3.1 %-10 %-6 % (large) adhesive patch,medicated 1 patch topical DAILY PRN (Reason: pain) Qty: 6 12RF Rx Instructions: may leave on for up to 12 hrs tramadol 50 mg tablet 50 mg PO BID PRN (Reason: pain) Qty: 60 0RF gabapentin 100 mg capsule 200 mg PO BEDTIME Qty: 30 1RF Stand Alone Forms: Work/School Release Interventions: ED Discharge Assessment Last Done: 02/17/25 14:20 Discharge Date/Time: 02/17/25 14:20 Print Language: Bahraini
[2025-02-17 12:06] LABS: COVID-19 Test Negative (Negative); IDNOW Serial# 55D5AD1C; IDNOW Serial# 58CA691E; Influenza B2 Negative (Negative)
[2025-02-17 14:20] VITALS: BP 138/81; PULSE 97; RESP 20; TEMP 36.4; O2SAT 98
== END 2025-02-17 14:20 | disposition home or self-care (01) ==
PROVIDERS: Physician Assistant; Emergency Provider Emergency Medicine; PCP Nurse Practitioner Family
DX: J18.9 Pneumonia, unspecified organism (principal); R05.9 Cough, unspecified; R09.81 Nasal congestion
CPT/HCPCS: 71045; 87502; 87635; 99282; 99283

== ENCOUNTER → 2025-02-17 11:24 | Outpatient (BNV) | payer OTHER, SELFPAY | PROVIDERS: Emergency Provider Emergency Medicine; PCP Nurse Practitioner Family; Visit Provider Radiology Diagnostic Radiology | DX: R05.9 Cough, unspecified (principal) | CPT/HCPCS: 71045 ==

== ENCOUNTER 2025-04-28 14:55 | Outpatient (AMB) | payer OTHER, SELFPAY ==
--- NOTE | 2025-04-28 15:01 | A.OFFPC_ITS ---
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 Accompanied by: Self / Same As Patient Allergies oxycodone (From PERCOCET) Allergy (Unknown, Verified 04/28/25 15:31) VOMITING Medication List - Last Reconciled 04/28/25 by Graeme Carvajal, [facility]- albuterol sulfate 90 mcg/actuation (Ventolin HFA) 1 inh inhalation Q6H PRN betamethasone valerate 0.1% 1 appl topical DAILY PRN camphor-methyl salicyl-menthol 3.1 %-10 %-6 % (large) (Salonpas) 1 patch topical DAILY PRN fluticasone propionate 50 mcg/actuation 2 sprays intranasal DAILY PRN gabapentin 200 mg (2 x 100 mg) PO BEDTIME lorazepam (Ativan) 1 mg PO ONCE omeprazole 20 mg PO DAILY Tobacco use date assessed: 04/28/25 Dental Screening Dental Screen Date: 04/28/25 Did you have a dental visit in the last 12 months?: Yes Did you have a dental problem in the last 6 months where you did not have access to dental care?: No Was dental information given to patient?: Patient has dentist HPI PE, last visit 2021 HPI Details History of Present Illness The patient is a 59-year-old female presenting for a physical exam. The patient had pneumonia two months ago and reports feeling much better, but she has a residual cough with some mucus production, particularly in the morning. She denies any fevers, chills, or shortness of breath. She reports arthritis in her fingers. 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 Health Maintenance An order for a mammogram will be placed as she is due for screening. Her colon screening is up to date. The patient declined vaccinations at this visit. Social History Review of Systems - General: Denies fevers or chills. - Respiratory: Reports a residual cough with some morning mucus production, but denies shortness of breath. - Cardiovascular: Denies chest pain. - Gastrointestinal: Denies abdominal lizy n, hematochezia, constipation, or diarrhea. - Musculoskeletal: Reports arthritis in her fingers. - Psychiatric: Denies suicidal or homici bert ideation. Physical Exam General: Cooperative, healthy appearing, comfortable, no acute distress and well developed Orientation: Patient oriented x3 Limitations: No limitations Head: Normal to inspection Ears: Hearing grossly normal bilaterally Nose: Normal external nose present Face and sinus: Normal facial exam Eyes: Appearance normal, both eyes and all related structures Neck: Normal visual inspection and Yes full ROM Respiratory: Normal respiratory effort and able to speak in complete sentences. Clear to auscultation bilaterally Cardiovascular: Regular rate and rhythm. Normal S1 and S2 GI: Normal to inspection. Soft to palpation and nontender Skin: No rashes or lesions noted Neuro: Patient oriented x3 Extremities: Slight swelling and deviation noted (distal fingers) in DIP and PIP joints of fingers, especially the index fingers bilaterally Results Plan 1. History Of Pneumonia The patient had pneumonia two months prior and has a residual cough with mucus production in the morning, though she feels much better. A follow-up chest x-ray will be obtained to ensure complete resolution. 2. Arthritis Of Fingers The patient describes arthritis in her fingers, and physical exam notes swelling of the DIP and PIP joints with some distal deviation. To further evaluate, an x- ray of her hands and fingers will be ordered, along with a rheumatoid factor test. Discussion Notes I have advised the patient that she is here for a physical exam. Regarding her history of pneumonia two months ago, I explained that we will repeat a chest x- ray to ensure it has resolved, given her persistent residual cough and morning mucus. For the arthritis in her fingers, I have ordered x-rays and a rheumatoid factor to investigate the cause. I have also placed an order for a mammogram as she is due for screening. She was informed that her lab and imaging orders can be completed in the near future. The patient declined vaccinations today. Patient Instructions - We will be getting a chest x-ray to ma ke sure your pneumonia from two months ago has fully cleared up, since you still have a slight cough. - To look into the arthritis in your fin gers, we will get an x-ray of your hands and fingers, and also do some blood work. - I have placed an order for you to get a mammogram, as you are due for one. - Please complete the ordered x-rays and blood tests in the near future. [facility] Medical History LGSIL on Pap smear of cervix History of abnormal cervical Pap smear High calcium levels Anxiety Psoriasis Family hx-breast malignancy Pain of right heel Surgical History Hx of shoulder surgery Hx of colonoscopy H/O LEEP Hx of cholecystectomy Status post breast reduction History of hemorrhoidectomy History of tubal ligation Family History Father No problems noted. Mother HTN (hypertension) Breast cancer, Onset Age: 78 Social History Housing: House Alcohol intake: current Alcohol intake frequency: a few times a week Alcohol type: wine Patient Tobacco Use Status: Former Tobacco user e-Cigarette/Vaping Use: Never Used Second Hand Smoke Exposure: No Current occupational status: employed Current occupation: [employer] Current occupational exposures/hazards: Yes Cognitive needs: No Hearing needs: No Vision needs: No Female Reproductive History Menstrual Age of Menarche: 14 Questionnaire PHQ-9 Over the last 2 weeks, how often have you been bothered by any of the following problems? 1. Little interest or pleasure in doing things: not at all 2. Feeling down, depressed, or hopeless: not at all 3. Trouble falling or staying asleep, or sleeping too much: not at all 4. Feeling tired or having little energy: not at all 5. Poor appetite or overeating: not at all 6. Feeling bad about yourself - or that you are a failure or have let yourself or your family down: not at all 7. Trouble concentrating on things, such as reading the newspaper or watching television: not at all 8. Moving or speaking so slowly that other people could have noticed. Or the opposite - being so fidgety or restless that you have been moving around a lot more than usual: not at all 9. Thoughts that you would be better off or of hurting yourself in some way: not at all Total score: 0 Depression Screening Interpretation: Negative Depression Screening Done: Yes Source: Developed by Drs. Sergio Tyler, Lisa Noble, Jimy Stevenson and colleagues, with an educational crystal from [employer]. TINY-7 AMB Questionnaire TINY-7 Feeling nervous, anxious, or on edge: 1 = Several days Not being able to stop or control worryin = Not at all Worrying too much about different things: 0 = Not at all Trouble relaxin = Not at all Being so restless that it is hard to sit still: 0 = Not at all Becoming easily annoyed or irritable: 0 = Not at all Feeling afraid as if something awful might happen: 0 = Not at all Total TINY-7 score (0-4 normal; 5-9 mild; 10-14 moderate; 15-21 severe): 1 Source: Developed by Drs. Sergio Tyler, Lisa Noble, Jimy Stevenson and colleagues, with an educational crystal from [employer]. TINY-7 Assessment Billing TINY-7 Assessment Tool: TINY-7 Assessment 27725 Physical exam (Primary Care) Vital Signs: Last Vital Signs Temp 99.0 F 04/28/25 15:05 Pulse 75 04/28/25 15:05 Resp 16 04/28/25 15:05 BP 122/88 04/28/25 15:05 Pulse Ox 95 04/28/25 15:05 BMI result Body Mass Index 25.0 Tobacco/Smoking Status: Tobacco use Status Tobacco use date assessed 04/28/25 04/28/25 15:04 Patient Tobacco Use Status Former Tobacco user 04/28/25 15:04 e-Cigarette/Vaping Use Never Used 04/28/25 15:04 PHQ-9: PHQ-9 Score PHQ-9: Total score 0 04/28/25 15:11 Depression Screening Interpretation: Negative Coding Level of Care Code Est Pt Level 3 (95338) Est Pt Prev Care 40-64y(70971) Diagnoses Physical exam Z00.00 Vitamin D deficiency E55.9 Pneumonia J18.9 Arthritis M19.90 Additional Codes TINY-7 Assessment Billing - TINY-7 Assessment Tool: TINY-7 Assessment 57147 ([id number]) Assessment & Plan Assessment & Plan (1) Physical exam: Code(s): Z00.00 - Encounter for general adult medical examination without abnormal findings Category: Medical (2) Vitamin D deficiency: Code(s): E55.9 - Vitamin D deficiency, unspecified Category: Medical (3) Pneumonia: Code(s): J18.9 - Pneumonia, unspecified organism Category: Medical (4) Arthritis: Code(s): M19.90 - Unspecified osteoarthritis, unspecified site Category: Medical Plan . Orders: Orders Lipid Panel Today Z00.00 - Encounter for general adult medical examination without abnormal findings Vitamin D 25-OH Total Today E55.9 - Vitamin D deficiency, unspecified XR chest 2V Today J18.9 - Pneumonia, unspecified organism Rheumatoid Factor Today M19.90 - Unspecified osteoarthritis, unspecified site Cyclic Citrullinated Peptide Today M19.90 - Unspecified osteoarthritis, unspecified site XR Hand Dar 2V Today M19.90 - Unspecified osteoarthritis, unspecified site Complete Blood Count Auto Diff Today Z00.00 - Encounter for general adult medical examination without abnormal findings Comprehensive [place]. Panel Fast Today Z00.00 - Encounter for general adult medical examination without abnormal findings TSH reflex Free T4 Today Z00.00 - Encounter for general adult medical examination without abnormal findings UA CC w/rflx Micro + Cult Today Z00.00 - Encounter for general adult medical examination without abnormal findings MM screening mammo BI Today Z12.31 - Encounter for screening mammogram for malignant neoplasm of breast
[2025-04-28 15:05] VITALS: BP 122/88; PULSE 75; RESP 16; TEMP 37.2; O2SAT 95; BMI 25.0
== END 2025-04-28 15:42 | disposition home or self-care (01) ==
LOC: HO.HMCC 14:56
PROVIDERS: PCP Nurse Practitioner Family; Visit Provider Nurse Practitioner Family
DX: Z00.00 Encounter for general adult medical examination without abnormal findings (principal); E55.9 Vitamin D deficiency, unspecified; J18.9 Pneumonia, unspecified organism; M19.041 Primary osteoarthritis, right hand; M19.042 Primary osteoarthritis, left hand

== ENCOUNTER → 2025-04-28 14:55 | Outpatient (BNVA) | payer OTHER, SELFPAY | PROVIDERS: PCP Nurse Practitioner Family; Visit Provider Nurse Practitioner Family | DX: Z00.00 Encounter for general adult medical examination without abnormal findings (principal); E55.9 Vitamin D deficiency, unspecified; J18.9 Pneumonia, unspecified organism; M19.90 Unspecified osteoarthritis, unspecified site | CPT/HCPCS: 96127 ==